=== PATIENT | female | born 1995 | race Caucasian/White ===

== ENCOUNTER 2016-10-18 06:08 | Inpatient (IN) | payer BC, OTHER ==
[2016-10-18] VITALS (28 sets, daily range): BP systolic 108–151; BP diastolic 55–92
[~2016-10-18] VITALS: Ht 160 cm; Wt 76.0 kg
[~2016-10-18 06:08] MED LIST: ANUS2.5C2 TOP; DOCU10ELUD PO; IBUP600T26 PO; MOM30SS PO; TYLE325T5 PO
[2016-10-18] MEDS ORDERED: PRENTAB55 PO (06:25)
[2016-10-18] MEDS ORDERED: LR 1,000 ML IV SCH (06:53)
[2016-10-18] MEDS ORDERED: OXYTOCIN DRIP 30 UNITS in APPROPRIATE DILUENT 1 EA IV SCH (07:00)
[2016-10-18 07:11] LABS: MEAN CORPUSCULAR HEMOGLOBIN 25.8 pg (27.0-33.0); MEAN CORPUSCULAR HGB CONC 32.2 g/dl (32.0-36.5); MEAN CORPUSCULAR VOLUME 80.2 fl (80.0-96.0); WHITE BLOOD COUNT 9.7 K/mm3 (4.0-10.0)
--- NOTE | 2016-10-18 07:48 | HPE ---
DATE OF ADMISSION: 10/18/2016 Dede is a 21-year-old, 2, para 1-0-0-1, at 39-4/7 weeks gestation, with an estimated date of confinement (EDC) of 10/21/2016, based on last normal menstrual period and supported by second trimester ultrasound. She presents to labor and delivery today for induction of labor due to recent diagnosis of gestational hypertension. She does report some occasional contractions. Denies leakage of fluid and vaginal bleeding. Her fetus has been active. care was initiated at [facility] as a late entry care at approximately 24 weeks due to her move to [place] and she did not obtain care while she was there. course has been complicated by a history of exercise-induced asthma with rare inhaler use, current diagnosis of shingles. The area is on her right abdomen and it is covered with an occlusive dressing at this time, and gestational hypertension. OBSTETRICAL HISTORY: June 2013, at 42 weeks gestation, she had spontaneous vaginal delivery, 7 pound 4 ounce male. OBSTETRICAL LABS: Blood type is B+, antibody screen negative, rubella immune, VDRL nonreactive. Urine culture no growth. Hepatitis B surface antigen negative. HIV negative. Hepatitis C antibody negative. Gonorrhea and Chlamydia negative. She was too late for the quad screen to be drawn. Gestational diabetic screening 104. GBS is negative. She did undergo a pre-eclamptic profile on 10/10/2016 with AST of 6, ALT of 11, LDH 155, uric acid 3.9. 24-hour urine of 198.4 mg. PAST MEDICAL HISTORY: Exercise-induced asthma, childhood varicella. SURGERIES: None. FAMILY HISTORY: Diabetes. SOCIAL HISTORY: The patient is and the is at bedside and supportive. She is a nonsmoker. Denies alcohol and drug use. No history of any sexually transmitted infections and denies history of abuse, physical, sexual and emotional. ALLERGIES: AMOXICILLIN, which causes hives. CURRENT MEDICATIONS: - vitamin OBJECTIVE: Her vital signs are stable. Temperature 98, pulse 101, respirations 18, blood pressure 123/72. heart rate 130 with moderate variability, positive accelerations, no decelerations. She is romero about every 3 minutes did palpate mild. Abdomen is gravid, cephalic presentation. Estimated weight approximately 7 pounds. Sterile vaginal exam: 2-3 cm dilated, 80% effaced and -3 station. Membranes are intact with scant bloody show. ASSESSMENT: Intrauterine at 39-4/7 weeks gestation. heart rate category 1. Gestational hypertension. PLAN: Admit patient to labor and delivery. Labs as ordered. Bed ad nik. Start IV Pitocin for labor induction. I did review risks of induction including increased risk for section, failed induction, intolerance to labor. All of the patient and her 's questions were answered and they do desire to proceed with induction at this time. I do anticipate labor and a spontaneous vaginal delivery.
[2016-10-18] MEDS: PRENATAL VITAMIN TAB PO SCH (09:00)
[2016-10-18] MEDS ORDERED: FENTANYL 2MCG/ML ROPIVACAINE 0.2% NACL 250 ML CADD As Ordered ONE (11:10)
[2016-10-18] MEDS ORDERED: FENTANYL/ROPIVACAINE/NACL CADD 250 ML EPIDURAL SCH (12:30)
[2016-10-18] MEDS ORDERED: REFRIGERATOR IV KEYS XX PRN (12:30)
[2016-10-18] MEDS ORDERED: EPIDURAL COMMENT XX SCH (12:30)
[2016-10-18] MEDS ORDERED: ePHEDrine SULFATE 25 MG/5 ML(5MG/ML) SYRINGE IV PRN (12:30)
[2016-10-18] MEDS ORDERED: ONDANSETRON 4MG/2ML VIAL (J2405) IV PRN (12:30)
[2016-10-18] MEDS ORDERED: LACTATED RINGER'S 1000 ML IV PRN (12:30)
[2016-10-18] MEDS ORDERED: NALOXONE INJ 0.4 MG/1 ML VIAL (J2310) IV PRN (12:30)
[2016-10-18] MEDS ORDERED: EPIDURAL/PCA KEYS XX PRN (12:30)
[2016-10-18] MEDS ORDERED: diphenhydrAMINE INJ 50MG/ML VIAL (J1200) IV PRN (12:30)
[2016-10-18] MEDS ORDERED: MOM 30ML SUSPENSION UDC PO PRN (13:45)
[2016-10-18] MEDS ORDERED: METHYLERGONOVINE MALEATE 0.2 MG TAB PO PRN (13:45)
[2016-10-18] MEDS ORDERED: DOCUSATE SODIUM 100 MG CAP PO PRN (13:45)
[2016-10-18] MEDS ORDERED: ANUSOL HC CREAM 30GM TOP PRN (13:45)
[2016-10-18] MEDS ORDERED: DIBUCAINE 1% OINTMENT 30GM TOP PRN (13:45)
[2016-10-18] MEDS ORDERED: RHOGAM 300 MCG (1500 IU) INJ (J2790) IM SCH (13:45)
[2016-10-18] MEDS ORDERED: ACETAMINOPHEN 500 MG TAB PO PRN (13:45)
[2016-10-18] MEDS ORDERED: MEASLES,MUMPS,RUBELLA VACCINE INJ (MMR-II) (90707) SC SCH (13:45)
[2016-10-18] MEDS: IBUPROFEN 800 MG TAB PO PRN (23:54)
[2016-10-19 06:11] VITALS: BP 119/64
[2016-10-19] MEDS: IBUPROFEN 800 MG TAB PO PRN ×3 (08:34→23:14)
[2016-10-19] MEDS: PRENATAL VITAMIN TAB PO SCH (08:34)
[2016-10-19 18:00] VITALS: BP 117/69
[2016-10-20 06:21] VITALS: BP 108/54
[2016-10-20] MEDS: PRENATAL VITAMIN TAB PO SCH (08:00)
[2016-10-20] MEDS ORDERED: MOTR200T40 PO (10:56)
[2016-10-20] MEDS ORDERED: TYLE500T78 PO (10:56)
[2016-10-20] MEDS ORDERED: MULTTAB20 PO (10:56)
[2016-10-20] MEDS: IBUPROFEN 800 MG TAB PO PRN (12:29)
--- NOTE | 2016-10-20 19:31 | DN ---
DATE: 10/18/2016 Comfortable with epidural. Artificial rupture of membranes 1255. Clear fluid at 8 cm. Fully dilated 1318. Viable female delivered left occiput anterior (JACINTA) compound with posterior left arm through loose body cord at 1326. Spontaneous respirations with stimulation. Transitioned on maternal abdomen. Cord doubly clamped and cut once pulsations ceased. scores eight and nine. Placenta Oleary and intact with three-vessel cord at 1331. Fundus firmed with massage and intravenous (IV) Pitocin bolus. Perineum intact. Estimated blood loss 200 mL. Sponge, sharp and instrument count correct. weight is pending. Mom and baby doing well.
== END 2016-10-20 13:35 | disposition home or self-care (01) | DRG 560 ==
LOC: M LDI 06:08 → M OBS 15:24
PROVIDERS: ADMIT Advanced Practice Midwife; ATTEND Advanced Practice Midwife
PROC: 10E0XZZ Delivery of Products of Conception, External Approach (ICD-10-PCS; principal; 2016-10-18)
PROC: 10907ZC Drainage of Amniotic Fluid, Therapeutic from Products of Conception, Via Natural or Artificial Opening (ICD-10-PCS; 2016-10-18)
PROC: 3E033VJ Introduction of Other Hormone into Peripheral Vein, Percutaneous Approach (ICD-10-PCS; 2016-10-18)
DX: O13.4 Gestational [pregnancy-induced] hypertension without significant proteinuria, complicating childbirth (principal); Z37.0 Single live birth; Z3A.38 38 weeks gestation of pregnancy; J45.909 Unspecified asthma, uncomplicated; B02.9 Zoster without complications; O98.52 Other viral diseases complicating childbirth; O99.52 Diseases of the respiratory system complicating childbirth; Z88.1 Allergy status to other antibiotic agents; O69.82X0 Labor and delivery complicated by other cord entanglement, without compression, not applicable or unspecified; O32.6XX0 Maternal care for compound presentation, not applicable or unspecified

== ENCOUNTER 2016-11-21 21:38 | Emergency (ER) | payer BC, OTHER ==
[~2016-11-21 21:38] MED LIST changes: +MOTR200T44 PO; +MULTTAB20 PO; +PRENTAB55 PO; +TYLE500T78 PO
[2016-11-21] MEDS ORDERED: EPINEPHrine INJ 1 MG/ML 1ML VIAL/AMP As Ordered ONE (21:53)
[2016-11-21] MEDS ORDERED: FAMOTIDINE INJ 20MG/2ML VIAL (S0028) As Ordered ONE ×2 (22:12→22:13)
[2016-11-21 22:21] LABS: BASO % 0.2 % (0.0-1.0); EOS # 0.3 K/mm3 (0.0-0.50); EOS % 5.6 % (0.0-3.0); LARGE UNSTAINED CELL # 0.3 K/mm3 (0.0-0.4); LARGE UNSTAINED CELL % 5.8 % (0.0-4.0); LYMPH # 2.1 K/mm3 (1.5-6.5); LYMPH % 35.4 % (24.0-44.0); MEAN CORPUSCULAR HEMOGLOBIN 25.3 pg (27.0-33.0); MEAN CORPUSCULAR HGB CONC 31.4 g/dl (32.0-36.5); MEAN CORPUSCULAR VOLUME 80.4 fl (80.0-96.0); MONO # 0.5 K/mm3 (0.0-0.8); MONO % 8.8 % (0.0-5.0); NEUTROPHILS # 2.6 K/mm3 (1.8-7.7); NEUTROPHILS % 44.2 % (36.0-66.0); PLATELET COUNT, AUTOMATED 179 k/mm3 (150-450); WHITE BLOOD COUNT 5.9 K/mm3 (4.0-10.0)
[2016-11-21 22:32] LABS: ANION GAP 10 MEQ/L (8-16); BLOOD UREA NITROGEN 6 MG/DL (7-18); CARBON DIOXIDE LEVEL 24 MEQ/L (21-32); CHLORIDE LEVEL 108 MEQ/L (98-107); CREATININE FOR GFR 1.09 MG/DL (0.55-1.02); GLOMERULAR FILTRATION RATE > 60.0 (>60); GLUCOSE, FASTING 112 MG/DL (70-105); POTASSIUM SERUM 3.6 MEQ/L (3.5-5.1); SODIUM LEVEL 142 MEQ/L (136-145)
--- NOTE | 2016-11-22 00:58 | REP ---
Clinical: Shortness of breath . Technique: PA and lateral. Comparison: 03/23/2012 . Findings: The mediastinum and cardiothymic silhouette are normal. The lung volumes are symmetric and normal. No acute consolidation, effusion, or pneumothorax. Skeletal structures are intact and normal for age. Impression: Normal chest x-ray. No focal consolidation. Signed by Shorty Saul MD 11/22/2016 12:50 A
--- NOTE | 2016-11-22 02:55 | EDDOCDS ---
Physician Documentation [facility] Name: Dede Montoya Age: 21 yrs Sex: Female : 1995 Arrival Date: 11/21/2016 Time: 21:38 Bed 4 Private MD: Disposition: 11/22/16 02:35 Discharged to Home/Self Care. Impression: Allergy to other foods. - Condition is Stable. - Discharge Instructions: Allergies, Epinephrine Injection, Food Allergy. - Prescriptions for Prednisone 20 mg Oral Tablet - take 2 tablet by ORAL route once daily for 5 days; 10 tablet. EpiPen 0.3 mg/0.3 mL (1:1,000) - inject 1 pen by INTRAMUSCULAR route one time As needed; 1 unit. - Medication Reconciliation, Local Pharmacy Hours form. - [facility] up: [facility]; When: Call to arrange an appointment; Reason: To establish care. - Problem is an acute exacerbation. - Symptoms have improved. Historical: - Allergies: Amoxicillin; Oregano; - Home Meds: 1. control - PMHx: none; - PSHx: none; - Social history: Smoking status: Patient states was never smoker of tobacco. No barriers to communication noted, The patient speaks fluent German. - Family history: Not pertinent. - : The pt / caregiver states he / she is not on anticoagulants. Home medication list is obtained from the patient. - Exposure Risk Screening:: None identified. 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 3 in. (160.02 cm) (R); Pain 0/10; 22:16 BP 145 / 71 (auto/); af2 22:17 Pulse 110 MON; Resp 18 S; Pulse Ox 99% on R/A; af2 22:31 BP 139 / 67 (auto/); af2 22:32 Pulse 108 MON; Resp 18 S; Pulse Ox 99% on R/A; af2 22:46 BP 139 / 70 (auto/); af2 22:47 Pulse 114 MON; Resp 18 S; Pulse Ox 100% on R/A; af2 23:01 BP 135 / 70 (auto/); af2 23:02 Pulse 116 MON; Resp 18 S; Pulse Ox 99% on R/A; af2 23:16 BP 135 / 69 (auto/); af2 23:17 Pulse 110 MON; Resp 18 S; Pulse Ox 99% on R/A; af2 23:31 BP 129 / 60 (auto/); af2 23:32 Pulse 106 MON; Resp 18 S; Pulse Ox 98% on R/A; af2 23:46 BP 125 / 60 (auto/); af2 23:47 Pulse 98 MON; Resp 18 S; Pulse Ox 97% on R/A; af2 11/22 00:01 BP 116 / 53 (auto/); af2 00:02 Pulse 108 MON; Resp 18 S; Pulse Ox 99% on R/A; af2 00:16 BP 115 / 58 (auto/); af2 00:17 Pulse 94 MON; Resp 18 S; Pulse Ox 98% on R/A; af2 00:31 BP 109 / 55 (auto/); af2 00:32 Pulse 86 MON; Resp 18 S; Pulse Ox 97% on R/A; af2 00:46 BP 100 / 50 (auto/); af2 00:47 Pulse 82 MON; Resp 18 S; Pulse Ox 98% on R/A; af2 01:01 BP 103 / 52 (auto/); af2 01:02 Pulse 82 MON; Resp 18 S; Pulse Ox 98% on R/A; af2 01:16 BP 104 / 52 (auto/); af2 01:17 Pulse 74 MON; Resp 18 S; Pulse Ox 98% on R/A; af2 01:31 BP 133 / 77 (auto/); af2 01:32 Pulse 96 MON; Resp 18 S; Pulse Ox 98% on R/A; af2 02:53 BP 118 / 71; Pulse 84; Resp 18 S; Temp 97.9(TE); Pulse Ox 98% on R/A; mlc 11/21 21:49 Body Mass Index 26.57 (68.04 kg, 160.02 cm) af2 MDM: 11/21 21:48 EPINEPHrine (1:1000) 0.3 ml IM once; Deep IM ordered. br1 21:49 IV Saline Lock ordered. br1 21:49 Undress patient ordered. br1 21:49 Engineering Inspection Assistant/Pulse Ox/q 30 min VS ordered. br1 21:50 CBC with Diff Ordered. EDMS 21:50 BMP Ordered. EDMS 21:51 Chest, 1 View Ordered. EDMS 21:51 ECG WITH READING ER PHYS+CARDIAG ordered. EDMS 21:58 Famotidine 40 mg IVP once ordered. br1 22:25 CBC with Diff Reviewed. br1 23:04 Financial registration complete. ks16 23:09 [facility] Payment Agreement was scanned into [employer] and attached to record. ks16 23:09 BMP Reviewed. br1 Administered Medications: 22:04 Drug: EPINEPHrine (1:1000) 0.3 ml [epinephrine HCl (PF) 1 mg/mL (1 mL) intravenous af2 solution (0.3 mL)] Route: IM; Site: right deltoid; 23:26 Follow up: Response: No Adverse Reaction af2 22:19 Drug: Famotidine 40 mg [famotidine 10 mg/mL intravenous solution (4 mL)] Route: IVP; af2 Site: left hand; 23:26 Follow up: Response: No Adverse Reaction af2 Signatures: Dispatcher [employer] EDMS George Garcia, DO mm11 Uday Ortiz MD MD br1 Ashley Aly RN RN mlc Cinthia Ruiz RN RN af2 Beth Brooke, Reg Reg ks16 The chart was reviewed and I authenticate all verbal orders and agree with the evaluation and treatment provided.Attachments: 23:09 [facility] Payment Agreement ks16 MTDD
--- NOTE | 2016-11-22 02:55 | EDDOCDS ---
Nurse's Notes [facility] Name: Dede Montoya Age: 21 yrs Sex: Female : 1995 Arrival Date: 11/21/2016 Time: 21:38 Bed 4 Private MD: Diagnosis: Allergy to other foods Presentation: 11/21 21:45 Presenting complaint: EMS states: allergic reaction with hives, swelling of lips, and af2 "it feels like my throat is closing." EMS admin of Benadryl 50 mg and Solu-medrol 125 mg with improvement. Onset: The symptoms/episode began/occurred suddenly. The patient has a history of a previous allergic reaction. The previous reaction involved swelling. Anaphylaxis evaluation, the patient reports or I have noted the following symptoms which indicate a significant risk of anaphylaxis: angioedema lump in the throat which may suggest laryngeal edema. Adult Sepsis Screening: The patient does not have new or worsening altered mentation. Patient's respiratory rate is less than 22. Systolic blood pressure is greater than 100. Patient has a qSOFA score of 0- Negative Sepsis Screen. Suicide/Homicide risk assessment- the patient denies having any suicidal and/or homicidal ideations and does not present with any other emotional, behavioral or mental health complaints. Status: The patient is a dependent. Transition of care: patient was not received from another setting of care. 21:45 Acuity: DERRICK Level 3 af2 21:45 Method Of Arrival: Ambulance af2 Triage Assessment: 21:48 General: Appears in no apparent distress, comfortable, Behavior is appropriate for age, af2 cooperative. Pain: Denies pain. Pt Declines HIV testing. The patient is triaged at the bedside. See Assessment in Nurses Notes section of ED record. Neurological: Level of Consciousness is awake, alert, obeys commands, Oriented to person, place, time. Respiratory: Reports shortness of breath. Derm: hives noted to abdomen and back. 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 control - PMHx: none; - PSHx: none; - Social history: Smoking status: Patient states was never smoker of tobacco. No barriers to communication noted, The patient speaks fluent Malawian. - Family history: Not pertinent. - : The pt / caregiver states he / she is not on anticoagulants. Home medication list is obtained from the patient. - Exposure Risk Screening:: None identified. Screenin:00 Screening information is obtained from the patient. Fall risk: No risks identified. af2 Assistance ADL's: requires no assistance with activities of daily living. Abuse/DV Screen: The patient / caregiver reports he/she is: not in a situation that causes fear, pain or injury. Nutritional screening: No deficits noted. Advance Directives: Currently, there is no health care proxy. home support is adequate. Assessment: 22:02 General: Appears in no apparent distress, comfortable, Behavior is appropriate for age, af2 cooperative. Neurological: Level of Consciousness is awake, alert, obeys commands, Oriented to person, place, time. Cardiovascular: Rhythm is sinus tachycardia No ectopy. Respiratory: Airway is patent Respiratory effort is even, unlabored, Breath sounds are clear bilaterally. Derm: Skin is normal. 23:00 General: Appears in no apparent distress, comfortable, Behavior is appropriate for age, af2 cooperative. Neurological: Level of Consciousness is awake, alert, obeys commands, Oriented to person, place, time. Cardiovascular: Rhythm is sinus rhythm No ectopy. Respiratory: Airway is patent Respiratory effort is even, unlabored. Derm: Skin is normal. 23:44 General: Appears in no apparent distress, comfortable, Behavior is appropriate for age, af2 cooperative. Neurological: Level of Consciousness is awake, alert, obeys commands, Oriented to person, place, time. Respiratory: Airway is patent Respiratory effort is even, unlabored. Derm: Skin is normal. 11/22 00:40 General: Appears in no apparent distress, comfortable, Behavior is appropriate for age, af2 cooperative. Neurological: Level of Consciousness is awake, alert, obeys commands. Respiratory: Airway is patent Respiratory effort is even, unlabored. Derm: Skin is normal. 01:41 General: Appears in no apparent distress, comfortable, Behavior is appropriate for age, af2 cooperative. Neurological: Level of Consciousness is awake, alert, obeys commands, Oriented to person, place, time. Cardiovascular: Rhythm is sinus rhythm No ectopy. Respiratory: Airway is patent Respiratory effort is even, unlabored. Derm: Skin is normal. 02:36 General: Appears in no apparent distress, comfortable, Behavior is appropriate for age, af2 cooperative. Neurological: Level of Consciousness is awake, alert, obeys commands, Oriented to person, place, time. Cardiovascular: Rhythm is sinus rhythm No ectopy. Respiratory: Airway is patent Respiratory effort is even, unlabored. Derm: Skin is normal. Vital Signs: 11/21 21:49 BP 155 / 71 LA Sitting (auto/); Pulse 101; Resp 18 S; Temp 97.9(TE); Pulse Ox 99% on af2 R/A; Weight 68.04 kg (R); Height 5 ft. 3 in. (160.02 cm) (R); Pain 0/10; 22:16 BP 145 / 71 (auto/); af2 22:17 Pulse 110 MON; Resp 18 S; Pulse Ox 99% on R/A; af2 22:31 BP 139 / 67 (auto/); af2 22:32 Pulse 108 MON; Resp 18 S; Pulse Ox 99% on R/A; af2 22:46 BP 139 / 70 (auto/); af2 22:47 Pulse 114 MON; Resp 18 S; Pulse Ox 100% on R/A; af2 23:01 BP 135 / 70 (auto/); af2 23:02 Pulse 116 MON; Resp 18 S; Pulse Ox 99% on R/A; af2 23:16 BP 135 / 69 (auto/); af2 23:17 Pulse 110 MON; Resp 18 S; Pulse Ox 99% on R/A; af2 23:31 BP 129 / 60 (auto/); af2 23:32 Pulse 106 MON; Resp 18 S; Pulse Ox 98% on R/A; af2 23:46 BP 125 / 60 (auto/); af2 23:47 Pulse 98 MON; Resp 18 S; Pulse Ox 97% on R/A; af2 11/22 00:01 BP 116 / 53 (auto/); af2 00:02 Pulse 108 MON; Resp 18 S; Pulse Ox 99% on R/A; af2 00:16 BP 115 / 58 (auto/); af2 00:17 Pulse 94 MON; Resp 18 S; Pulse Ox 98% on R/A; af2 00:31 BP 109 / 55 (auto/); af2 00:32 Pulse 86 MON; Resp 18 S; Pulse Ox 97% on R/A; af2 00:46 BP 100 / 50 (auto/); af2 00:47 Pulse 82 MON; Resp 18 S; Pulse Ox 98% on R/A; af2 01:01 BP 103 / 52 (auto/); af2 01:02 Pulse 82 MON; Resp 18 S; Pulse Ox 98% on R/A; af2 01:16 BP 104 / 52 (auto/); af2 01:17 Pulse 74 MON; Resp 18 S; Pulse Ox 98% on R/A; af2 01:31 BP 133 / 77 (auto/); af2 01:32 Pulse 96 MON; Resp 18 S; Pulse Ox 98% on R/A; af2 02:53 BP 118 / 71; Pulse 84; Resp 18 S; Temp 97.9(TE); Pulse Ox 98% on R/A; mlc 11/21 21:49 Body Mass Index 26.57 (68.04 kg, 160.02 cm) af2 Vitals: 11/21 21:49 Log In Time N/A - ambulance arrival. af2 ED Course: 21:40 Patient visited by Fredrick Pfeiffer, Independent Video Producer. ml3 21:40 Cinthia Ruiz,RN is Primary Nurse. ml3 21:40 Patient moved to Waiting ml3 21:40 Patient moved to 4 ml3 21:45 Uday Ortiz MD is Attending Physician. br1 21:47 Triage Initiated af2 21:48 Patient visited by Uday Ortiz MD. br1 21:50 Patient visited by Cinthia Ruiz,LAMONT. af2 21:51 Patient visited by Diana Deng PCA. cln 21:51 Pt greeted and oriented to ED. Patient advised of names of staff involved in care, cln location of call [place], wait times and NPO status. Patient has correct armband on for positive identification. Placed in gown. Bed in low position. Call light in reach. Side rails up X 1. 21:53 Patient visited by Diana Deng PCA. cln 21:53 EKG done. (by ED staff). Reviewed by Uday Ortiz MD. cln 22:02 BMP Sent. ld5 22:02 CBC with Diff Sent. ld5 22:03 Maintain field IV. Dressing intact. Good blood return noted. Site clean & dry. Gauge & af2 site: #[id number] to left ac. 22:04 Patient visited by Cinthia Ruiz RN. af2 23:06 Patient visited by Cinthia Ruiz RN. af2 23:09 [facility] Payment Agreement was scanned into [employer] and attached to record. ks16 23:43 Patient visited by Cinthia Ruiz RN. af2 23:45 Patient visited by Cinthia Ruiz RN. af2 11/22 00:00 Patient visited by Uday Ortiz MD. br1 00:08 Attending Physician role handed off by Uday Ortiz MD mm11 00:08 George Garcia DO is Attending Physician. mm11 00:32 Patient visited by Cinthia Ruiz RN. af2 01:18 Chest, 1 View Returned. EDMS 01:40 Patient visited by Cinthia Ruiz RN. af2 01:42 Patient visited by Cinthia Ruiz RN. af2 01:46 Patient visited by Cinthia Ruiz RN. af2 02:34 Patient visited by George Garcia DO. mm11 02:34 [facility] is Referral Physician. mm11 02:37 Patient visited by Cinthia Ruiz RN. af2 02:53 Discontinued IV lock intact, bleeding controlled, pressure dressing applied, No mlc redness/swelling at site. No procedures done that require assistance. 02:54 The patient / caregiver is instructed regarding the plan of care and ED course. mlc Administered Medications: 11/21 22:04 Drug: EPINEPHrine (1:1000) 0.3 ml [epinephrine HCl (PF) 1 mg/mL (1 mL) intravenous af2 solution (0.3 mL)] Route: IM; Site: right deltoid; 23:26 Follow up: Response: No Adverse Reaction af2 22:19 Drug: Famotidine 40 mg [famotidine 10 mg/mL intravenous solution (4 mL)] Route: IVP; af2 Site: left hand; 23:26 Follow up: Response: No Adverse Reaction af2 Order Results: Lab Order: CBC with Diff; SPEC'M 11/21/16 22:00 Test: WHITE BLOOD COUNT; Value: 5.9; Range: 4.0-10.0; Units: K/mm3; Status: F Test: RED BLOOD COUNT; Value: 4.78; Range: 4.00-5.40; Units: M/mm3; Status: F Test: HEMOGLOBIN; Value: 12.1; Range: 12.0-16.0; Units: g/dl; Status: F Test: HEMATOCRIT; Value: 38.4; Range: 36.0-47.0; Units: %; Status: F Test: MEAN CORPUSCULAR VOLUME; Value: 80.4; Range: 80.0-96.0; Units: fl; Status: F Test: MEAN CORPUSCULAR HEMOGLOBIN; Value: 25.3; Range: 27.0-33.0; Abnormal: Below low normal; Units: pg; Status: F Test: MEAN CORPUSCULAR HGB CONC; Value: 31.4; Range: 32.0-36.5; Abnormal: Below low normal; Units: g/dl; Status: F Test: RED CELL DISTRIBUTION WIDTH; Value: 14.0; Range: 11.5-14.5; Units: %; Status: F Test: PLATELET COUNT, AUTOMATED; Value: 179; Range: 150-450; Units: k/mm3; Status: F Test: NEUTROPHILS %; Value: 44.2; Range: 36.0-66.0; Units: %; Status: F Test: LYMPH %; Value: 35.4; Range: 24.0-44.0; Units: %; Status: F Test: MONO %; Value: 8.8; Range: 0.0-5.0; Abnormal: Above high normal; Units: %; Status: F Test: EOS %; Value: 5.6; Range: 0.0-3.0; Abnormal: Above high normal; Units: %; Status: F Test: BASO %; Value: 0.2; Range: 0.0-1.0; Units: %; Status: F Test: LARGE UNSTAINED CELL %; Value: 5.8; Range: 0.0-4.0; Abnormal: Above high normal; Units: %; Status: F Test: NEUTROPHILS #; Value: 2.6; Range: 1.8-7.7; Units: K/mm3; Status: F Test: LYMPH #; Value: 2.1; Range: 1.5-6.5; Units: K/mm3; Status: F Test: MONO #; Value: 0.5; Range: 0.0-0.8; Units: K/mm3; Status: F Test: EOS #; Value: 0.3; Range: 0.0-0.50; Units: K/mm3; Status: F Test: BASO #; Value: 0.0; Range: 0.0-0.2; Units: K/mm3; Status: F Test: LARGE UNSTAINED CELL #; Value: 0.3; Range: 0.0-0.4; Units: K/mm3; Status: F Lab Order: [facility]; SPEC'M 11/21/16 22:00 Test: GLUCOSE, FASTING; Value: 112; Range: 70-105; Abnormal: Above high normal; Units: MG/DL; Status: F Test: BLOOD UREA NITROGEN; Value: 6; Range: 7-18; Abnormal: Below low normal; Units: MG/DL; Status: F Test: CREATININE FOR GFR; Value: 1.09; Range: 0.55-1.02; Abnormal: Above high normal; Units: MG/DL; Status: F Test: GLOMERULAR FILTRATION RATE; Value: > 60.0; Range: >60; Status: F Test: SODIUM LEVEL; Value: 142; Range: 136-145; Units: MEQ/L; Status: F Test: POTASSIUM SERUM; Value: 3.6; Range: 3.5-5.1; Units: MEQ/L; Status: F Test: CHLORIDE LEVEL; Value: 108; Range: 98-107; Abnormal: Above high normal; Units: MEQ/L; Status: F Test: CARBON DIOXIDE LEVEL; Value: 24; Range: 21-32; Units: MEQ/L; Status: F Test: ANION GAP; Value: 10; Range: 8-16; Units: MEQ/L; Status: F Test: CALCIUM LEVEL; Value: 8.0; Range: 8.5-10.1; Abnormal: Below low normal; Units: MG/DL; Status: F Test Note: ; Units are mL/min/1.73 m2 Chronic Kidney Disease Staging per NKF: Stage I & II GFR >=60 Normal to Mildly Decreased Stage III GFR 30-59 Moderately Decreased Stage IV GFR 15-29 Severely Decreased Stage V GFR <15 Very Little GFR Left ESRD GFR <15 on 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 The lung volumes are; symmetric and normal. No acute consolidation, effusion, or pneumothorax.; Skeletal structures are intact and normal for age.; ; Impression:; Normal chest x-ray.; No focal consolidation.; ; ; Signed by; Shorty Saul MD 11/22/2016 12:50 A; Outcome: 11/22 02:35 Discharge ordered by Provider. mm11 02:53 Discharge Assessment: Patient awake, alert and oriented x 3. No cognitive and/or mlc functional deficits noted. Patient verbalized understanding of disposition instructions. patient administered narcotics - no. The following High Risk Discharge criteria are identified: None. Discharged to home ambulatory, with significant other. Condition: stable. Discharge instructions given to patient, Instructed on discharge instructions, follow up and referral plans. medication usage, Demonstrated understanding of instructions, medications, Pt was receptive of discharge instructions/ teaching. No special radiology studies were completed. Property :Personal belongings accompany Pt. 02:54 Patient left the ED. [place] Signatures: Dispatcher [employer] EDMS Fredrick Pfeiffer, Independent Video Producer Unit ml3 George Garcia DO DO mm11 Uday Ortiz MD MD br1 Marcyruz Mcnair,RN RN ld5 Ashley Aly RN RN mlc Cinthia Ruiz RN RN af2 Beth Brooke, Reg Reg ks16 Sowmya, Diana, ANIMAL LABORATORY TECHNICIAN ANIMAL LABORATORY TECHNICIAN cln MTDD
--- NOTE | 2016-11-22 21:18 | ECGEPIP ---
Stationary ECG Study 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
--- NOTE | 2016-11-24 03:55 | EDDOCDS ---
Nurse's Notes [facility] Name: Dede Montoya Age: 21 yrs Sex: Female : 1995 Arrival Date: 11/21/2016 Time: 21:38 Bed 4 Private MD: Diagnosis: Allergy to other foods Presentation: 11/21 21:45 Presenting complaint: EMS states: allergic reaction with hives, swelling of lips, and af2 "it feels like my throat is closing." EMS admin of Benadryl 50 mg and Solu-medrol 125 mg with improvement. Onset: The symptoms/episode began/occurred suddenly. The patient has a history of a previous allergic reaction. The previous reaction involved swelling. Anaphylaxis evaluation, the patient reports or I have noted the following symptoms which indicate a significant risk of anaphylaxis: angioedema lump in the throat which may suggest laryngeal edema. Adult Sepsis Screening: The patient does not have new or worsening altered mentation. Patient's respiratory rate is less than 22. Systolic blood pressure is greater than 100. Patient has a qSOFA score of 0- Negative Sepsis Screen. Suicide/Homicide risk assessment- the patient denies having any suicidal and/or homicidal ideations and does not present with any other emotional, behavioral or mental health complaints. Status: The patient is a dependent. Transition of care: patient was not received from another setting of care. 21:45 Acuity: DERRICK Level 3 af2 21:45 Method Of Arrival: Ambulance af2 Triage Assessment: 21:48 General: Appears in no apparent distress, comfortable, Behavior is appropriate for age, af2 cooperative. Pain: Denies pain. Pt Declines HIV testing. The patient is triaged at the bedside. See Assessment in Nurses Notes section of ED record. Neurological: Level of Consciousness is awake, alert, obeys commands, Oriented to person, place, time. Respiratory: Reports shortness of breath. Derm: hives noted to abdomen and back. 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 control - PMHx: none; - PSHx: none; - Social history: Smoking status: Patient states was never smoker of tobacco. No barriers to communication noted, The patient speaks fluent Brazilian. - Family history: Not pertinent. - : The pt / caregiver states he / she is not on anticoagulants. Home medication list is obtained from the patient. - Exposure Risk Screening:: None identified. Screenin:00 Screening information is obtained from the patient. Fall risk: No risks identified. af2 Assistance ADL's: requires no assistance with activities of daily living. Abuse/DV Screen: The patient / caregiver reports he/she is: not in a situation that causes fear, pain or injury. Nutritional screening: No deficits noted. Advance Directives: Currently, there is no health care proxy. home support is adequate. Assessment: 22:02 General: Appears in no apparent distress, comfortable, Behavior is appropriate for age, af2 cooperative. Neurological: Level of Consciousness is awake, alert, obeys commands, Oriented to person, place, time. Cardiovascular: Rhythm is sinus tachycardia No ectopy. Respiratory: Airway is patent Respiratory effort is even, unlabored, Breath sounds are clear bilaterally. Derm: Skin is normal. 23:00 General: Appears in no apparent distress, comfortable, Behavior is appropriate for age, af2 cooperative. Neurological: Level of Consciousness is awake, alert, obeys commands, Oriented to person, place, time. Cardiovascular: Rhythm is sinus rhythm No ectopy. Respiratory: Airway is patent Respiratory effort is even, unlabored. Derm: Skin is normal. 23:44 General: Appears in no apparent distress, comfortable, Behavior is appropriate for age, af2 cooperative. Neurological: Level of Consciousness is awake, alert, obeys commands, Oriented to person, place, time. Respiratory: Airway is patent Respiratory effort is even, unlabored. Derm: Skin is normal. 11/22 00:40 General: Appears in no apparent distress, comfortable, Behavior is appropriate for age, af2 cooperative. Neurological: Level of Consciousness is awake, alert, obeys commands. Respiratory: Airway is patent Respiratory effort is even, unlabored. Derm: Skin is normal. 01:41 General: Appears in no apparent distress, comfortable, Behavior is appropriate for age, af2 cooperative. Neurological: Level of Consciousness is awake, alert, obeys commands, Oriented to person, place, time. Cardiovascular: Rhythm is sinus rhythm No ectopy. Respiratory: Airway is patent Respiratory effort is even, unlabored. Derm: Skin is normal. 02:36 General: Appears in no apparent distress, comfortable, Behavior is appropriate for age, af2 cooperative. Neurological: Level of Consciousness is awake, alert, obeys commands, Oriented to person, place, time. Cardiovascular: Rhythm is sinus rhythm No ectopy. Respiratory: Airway is patent Respiratory effort is even, unlabored. Derm: Skin is normal. Vital Signs: 11/21 21:49 BP 155 / 71 LA Sitting (auto/); Pulse 101; Resp 18 S; Temp 97.9(TE); Pulse Ox 99% on af2 R/A; Weight 68.04 kg (R); Height 5 ft. 3 in. (160.02 cm) (R); Pain 0/10; 22:16 BP 145 / 71 (auto/); af2 22:17 Pulse 110 MON; Resp 18 S; Pulse Ox 99% on R/A; af2 22:31 BP 139 / 67 (auto/); af2 22:32 Pulse 108 MON; Resp 18 S; Pulse Ox 99% on R/A; af2 22:46 BP 139 / 70 (auto/); af2 22:47 Pulse 114 MON; Resp 18 S; Pulse Ox 100% on R/A; af2 23:01 BP 135 / 70 (auto/); af2 23:02 Pulse 116 MON; Resp 18 S; Pulse Ox 99% on R/A; af2 23:16 BP 135 / 69 (auto/); af2 23:17 Pulse 110 MON; Resp 18 S; Pulse Ox 99% on R/A; af2 23:31 BP 129 / 60 (auto/); af2 23:32 Pulse 106 MON; Resp 18 S; Pulse Ox 98% on R/A; af2 23:46 BP 125 / 60 (auto/); af2 23:47 Pulse 98 MON; Resp 18 S; Pulse Ox 97% on R/A; af2 11/22 00:01 BP 116 / 53 (auto/); af2 00:02 Pulse 108 MON; Resp 18 S; Pulse Ox 99% on R/A; af2 00:16 BP 115 / 58 (auto/); af2 00:17 Pulse 94 MON; Resp 18 S; Pulse Ox 98% on R/A; af2 00:31 BP 109 / 55 (auto/); af2 00:32 Pulse 86 MON; Resp 18 S; Pulse Ox 97% on R/A; af2 00:46 BP 100 / 50 (auto/); af2 00:47 Pulse 82 MON; Resp 18 S; Pulse Ox 98% on R/A; af2 01:01 BP 103 / 52 (auto/); af2 01:02 Pulse 82 MON; Resp 18 S; Pulse Ox 98% on R/A; af2 01:16 BP 104 / 52 (auto/); af2 01:17 Pulse 74 MON; Resp 18 S; Pulse Ox 98% on R/A; af2 01:31 BP 133 / 77 (auto/); af2 01:32 Pulse 96 MON; Resp 18 S; Pulse Ox 98% on R/A; af2 02:53 BP 118 / 71; Pulse 84; Resp 18 S; Temp 97.9(TE); Pulse Ox 98% on R/A; mlc 11/21 21:49 Body Mass Index 26.57 (68.04 kg, 160.02 cm) af2 Vitals: 11/21 21:49 Log In Time N/A - ambulance arrival. af2 ED Course: 21:40 Patient visited by Fredrick Pfeiffer, Brick And Tile Making Machine Operator. ml3 21:40 Cinthia Ruiz,RN is Primary Nurse. ml3 21:40 Patient moved to Waiting ml3 21:40 Patient moved to 4 ml3 21:45 Colt Ortiz MD is Attending Physician. br1 21:47 Triage Initiated af2 21:48 Patient visited by Colt Ortiz MD. br1 21:50 Patient visited by Cinthia Ruiz,LAMONT. af2 21:51 Patient visited by Diana Deng PCA. cln 21:51 Pt greeted and oriented to ED. Patient advised of names of staff involved in care, cln location of call [place], wait times and NPO status. Patient has correct armband on for positive identification. Placed in gown. Bed in low position. Call light in reach. Side rails up X 1. 21:53 Patient visited by Diana Deng PCA. cln 21:53 EKG done. (by ED staff). Reviewed by Colt Ortiz MD. cln 22:02 BMP Sent. ld5 22:02 CBC with Diff Sent. ld5 22:03 Maintain field IV. Dressing intact. Good blood return noted. Site clean & dry. Gauge & af2 site: #[id number] to left ac. 22:04 Patient visited by Cinthia Ruiz RN. af2 23:06 Patient visited by Cinthia Ruiz RN. af2 23:09 [facility] Payment Agreement was scanned into [employer] and attached to record. ks16 23:43 Patient visited by Cinthia Ruiz RN. af2 23:45 Patient visited by Cinthia Ruiz RN. af2 11/22 00:00 Patient visited by Colt Ortiz MD. br1 00:08 Attending Physician role handed off by Colt Ortiz MD mm11 00:08 George Garcia DO is Attending Physician. mm11 00:32 Patient visited by Cinthia Ruiz RN. af2 01:18 Chest, 1 View Returned. EDMS 01:40 Patient visited by Cinthia Ruiz RN. af2 01:42 Patient visited by Cinthia Ruiz RN. af2 01:46 Patient visited by Cinthia Ruiz RN. af2 02:34 Patient visited by George Garcia DO. mm11 02:34 [facility] is Referral Physician. mm11 02:37 Patient visited by Cinthia Ruiz RN. af2 02:53 Discontinued IV lock intact, bleeding controlled, pressure dressing applied, No mlc redness/swelling at site. No procedures done that require assistance. 02:54 The patient / caregiver is instructed regarding the plan of care and ED course. mlc 11:32 T-Sheet-- Draft Copy was scanned into [employer] and attached to record. gb 11:32 ECG/EKG was scanned into [employer] and attached to record. gb 11:33 PCR was scanned into [employer] and attached to record. gb 22:16 EKG-ADULT Returned. EDMS Administered Medications: 11/21 22:04 Drug: EPINEPHrine (1:1000) 0.3 ml [epinephrine HCl (PF) 1 mg/mL (1 mL) intravenous af2 solution (0.3 mL)] Route: IM; Site: right deltoid; 23:26 Follow up: Response: No Adverse Reaction af2 22:19 Drug: Famotidine 40 mg [famotidine 10 mg/mL intravenous solution (4 mL)] Route: IVP; af2 Site: left hand; 23:26 Follow up: Response: No Adverse Reaction af2 Order Results: Lab Order: CBC with Diff; SPEC'M 11/21/16 22:00 Test: WHITE BLOOD COUNT; Value: 5.9; Range: 4.0-10.0; Units: K/mm3; Status: F Test: RED BLOOD COUNT; Value: 4.78; Range: 4.00-5.40; Units: M/mm3; Status: F Test: HEMOGLOBIN; Value: 12.1; Range: 12.0-16.0; Units: g/dl; Status: F Test: HEMATOCRIT; Value: 38.4; Range: 36.0-47.0; Units: %; Status: F Test: MEAN CORPUSCULAR VOLUME; Value: 80.4; Range: 80.0-96.0; Units: fl; Status: F Test: MEAN CORPUSCULAR HEMOGLOBIN; Value: 25.3; Range: 27.0-33.0; Abnormal: Below low normal; Units: pg; Status: F Test: MEAN CORPUSCULAR HGB CONC; Value: 31.4; Range: 32.0-36.5; Abnormal: Below low normal; Units: g/dl; Status: F Test: RED CELL DISTRIBUTION WIDTH; Value: 14.0; Range: 11.5-14.5; Units: %; Status: F Test: PLATELET COUNT, AUTOMATED; Value: 179; Range: 150-450; Units: k/mm3; Status: F Test: NEUTROPHILS %; Value: 44.2; Range: 36.0-66.0; Units: %; Status: F Test: LYMPH %; Value: 35.4; Range: 24.0-44.0; Units: %; Status: F Test: MONO %; Value: 8.8; Range: 0.0-5.0; Abnormal: Above high normal; Units: %; Status: F Test: EOS %; Value: 5.6; Range: 0.0-3.0; Abnormal: Above high normal; Units: %; Status: F Test: BASO %; Value: 0.2; Range: 0.0-1.0; Units: %; Status: F Test: LARGE UNSTAINED CELL %; Value: 5.8; Range: 0.0-4.0; Abnormal: Above high normal; Units: %; Status: F Test: NEUTROPHILS #; Value: 2.6; Range: 1.8-7.7; Units: K/mm3; Status: F Test: LYMPH #; Value: 2.1; Range: 1.5-6.5; Units: K/mm3; Status: F Test: MONO #; Value: 0.5; Range: 0.0-0.8; Units: K/mm3; Status: F Test: EOS #; Value: 0.3; Range: 0.0-0.50; Units: K/mm3; Status: F Test: BASO #; Value: 0.0; Range: 0.0-0.2; Units: K/mm3; Status: F Test: LARGE UNSTAINED CELL #; Value: 0.3; Range: 0.0-0.4; Units: K/mm3; Status: F Lab Order: [facility]; SPEC'M 11/21/16 22:00 Test: GLUCOSE, FASTING; Value: 112; Range: 70-105; Abnormal: Above high normal; Units: MG/DL; Status: F Test: BLOOD UREA NITROGEN; Value: 6; Range: 7-18; Abnormal: Below low normal; Units: MG/DL; Status: F Test: CREATININE FOR GFR; Value: 1.09; Range: 0.55-1.02; Abnormal: Above high normal; Units: MG/DL; Status: F Test: GLOMERULAR FILTRATION RATE; Value: > 60.0; Range: >60; Status: F Test: SODIUM LEVEL; Value: 142; Range: 136-145; Units: MEQ/L; Status: F Test: POTASSIUM SERUM; Value: 3.6; Range: 3.5-5.1; Units: MEQ/L; Status: F Test: CHLORIDE LEVEL; Value: 108; Range: 98-107; Abnormal: Above high normal; Units: MEQ/L; Status: F Test: CARBON DIOXIDE LEVEL; Value: 24; Range: 21-32; Units: MEQ/L; Status: F Test: ANION GAP; Value: 10; Range: 8-16; Units: MEQ/L; Status: F Test: CALCIUM LEVEL; Value: 8.0; Range: 8.5-10.1; Abnormal: Below low normal; Units: MG/DL; Status: F Test Note: ; Units are mL/min/1.73 m2 Chronic Kidney Disease Staging per NKF: Stage I & II GFR >=60 Normal to Mildly Decreased Stage III GFR 30-59 Moderately Decreased Stage IV GFR 15-29 Severely Decreased Stage V GFR <15 Very Little GFR Left ESRD GFR <15 on SUPERVISOR CARTOGRAPHY Radiology Order: EKG-ADULT Test: EKG-ADULT REASON FOR EXAMINATION: dysrhythmia; Stationary ECG Study; [facility] - ED; ; Test Date: 2016-11-21; Pat Name: DEDE MONTOYA Department:; Room: -; Gender: F Transportation Technician: andree; : 1995 Requested By: COLT Pascual; Order Number: [id number] Reading MD: Shannan Bentley; Measurements; Intervals [place]; Rate: 96 P: 51; MN: 139 QRS: 38; QRSD: 89 T: 44; QT: 315; QTc: 399; Interpretive Statements; SINUS RHYTHM; NO PRIOR FOR COMPARISON; Electronically Signed On 11-22-2016 21:18:26 EST by Shannan Bentley; Radiology Order: Chest, 1 View Test: Chest, 1 View REASON FOR EXAMINATION: Shortness of Breath; Clinical: Shortness of breath .; Technique: PA and lateral.; ; Comparison: 03/23/2012 .; ; Findings:; The mediastinum and cardiothymic silhouette are normal. The lung volumes are; symmetric and normal. No acute consolidation, effusion, or pneumothorax.; Skeletal structures are intact and normal for age.; ; Impression:; Normal chest x-ray.; No focal consolidation.; ; ; Signed by; Shorty Saul MD 11/22/2016 12:50 A; Outcome: 11/22 02:35 Discharge ordered by Provider. mm11 02:53 Discharge Assessment: Patient awake, alert and oriented x 3. No cognitive and/or mlc functional deficits noted. Patient verbalized understanding of disposition instructions. patient administered narcotics - no. The following High Risk Discharge criteria are identified: None. Discharged to home ambulatory, with significant other. Condition: stable. Discharge instructions given to patient, Instructed on discharge instructions, follow up and referral plans. medication usage, Demonstrated understanding of instructions, medications, Pt was receptive of discharge instructions/ teaching. No special radiology studies were completed. Property :Personal belongings accompany Pt. 02:54 Patient left the ED. mlc Signatures: Dispatcher [employer] EDMS Shannon Mccurdy, Reg Reg gb Kentrell, EmyCindyJane, Brick And Tile Making Machine Operator Unit ml3 George Garcia, DO DO mm11 Colt Ortiz MD MD br1 Marycruz Mcnair,LAMONT RN ld5 Ashley Aly RN RN mlc Cinthia Ruiz RN RN af2 Beth Brooke, Reg Reg ks16 Sowmya, Diana, SHAMAR GRAFFITI CLEANER cln Chart Complete MTDD
--- NOTE | 2016-11-24 03:55 | EDDOCDS ---
Physician Documentation [facility] Name: Dede Montoya Age: 21 yrs Sex: Female : 1995 Arrival Date: 11/21/2016 Time: 21:38 Bed 4 Private MD: Disposition: 11/22/16 02:35 Discharged to Home/Self Care. Impression: Allergy to other foods. - Condition is Stable. - Discharge Instructions: Allergies, Epinephrine Injection, Food Allergy. - Prescriptions for Prednisone 20 mg Oral Tablet - take 2 tablet by ORAL route once daily for 5 days; 10 tablet. EpiPen 0.3 mg/0.3 mL (1:1,000) - inject 1 pen by INTRAMUSCULAR route one time As needed; 1 unit. - Medication Reconciliation, Local Pharmacy Hours form. - [facility]; When: Call to arrange an appointment; Reason: To establish care. - Problem is an acute exacerbation. - Symptoms have improved. Historical: - Allergies: Amoxicillin; Oregano; - Home Meds: 1. control - PMHx: none; - PSHx: none; - Social history: Smoking status: Patient states was never smoker of tobacco. No barriers to communication noted, The patient speaks fluent Slovak. - Family history: Not pertinent. - : The pt / caregiver states he / she is not on anticoagulants. Home medication list is obtained from the patient. - Exposure Risk Screening:: None identified. 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 3 in. (160.02 cm) (R); Pain 0/10; 22:16 BP 145 / 71 (auto/); af2 22:17 Pulse 110 MON; Resp 18 S; Pulse Ox 99% on R/A; af2 22:31 BP 139 / 67 (auto/); af2 22:32 Pulse 108 MON; Resp 18 S; Pulse Ox 99% on R/A; af2 22:46 BP 139 / 70 (auto/); af2 22:47 Pulse 114 MON; Resp 18 S; Pulse Ox 100% on R/A; af2 23:01 BP 135 / 70 (auto/); af2 23:02 Pulse 116 MON; Resp 18 S; Pulse Ox 99% on R/A; af2 23:16 BP 135 / 69 (auto/); af2 23:17 Pulse 110 MON; Resp 18 S; Pulse Ox 99% on R/A; af2 23:31 BP 129 / 60 (auto/); af2 23:32 Pulse 106 MON; Resp 18 S; Pulse Ox 98% on R/A; af2 23:46 BP 125 / 60 (auto/); af2 23:47 Pulse 98 MON; Resp 18 S; Pulse Ox 97% on R/A; af2 11/22 00:01 BP 116 / 53 (auto/); af2 00:02 Pulse 108 MON; Resp 18 S; Pulse Ox 99% on R/A; af2 00:16 BP 115 / 58 (auto/); af2 00:17 Pulse 94 MON; Resp 18 S; Pulse Ox 98% on R/A; af2 00:31 BP 109 / 55 (auto/); af2 00:32 Pulse 86 MON; Resp 18 S; Pulse Ox 97% on R/A; af2 00:46 BP 100 / 50 (auto/); af2 00:47 Pulse 82 MON; Resp 18 S; Pulse Ox 98% on R/A; af2 01:01 BP 103 / 52 (auto/); af2 01:02 Pulse 82 MON; Resp 18 S; Pulse Ox 98% on R/A; af2 01:16 BP 104 / 52 (auto/); af2 01:17 Pulse 74 MON; Resp 18 S; Pulse Ox 98% on R/A; af2 01:31 BP 133 / 77 (auto/); af2 01:32 Pulse 96 MON; Resp 18 S; Pulse Ox 98% on R/A; af2 02:53 BP 118 / 71; Pulse 84; Resp 18 S; Temp 97.9(TE); Pulse Ox 98% on R/A; mlc 11/21 21:49 Body Mass Index 26.57 (68.04 kg, 160.02 cm) af2 MDM: 11/21 21:48 EPINEPHrine (1:1000) 0.3 ml IM once; Deep IM ordered. br1 21:49 IV Saline Lock ordered. br1 21:49 Undress patient ordered. br1 21:49 Computer Publisher/Pulse Ox/q 30 min VS ordered. br1 21:50 CBC with Diff Ordered. EDMS 21:50 BMP Ordered. EDMS 21:51 Chest, 1 View Ordered. EDMS 21:51 ECG WITH READING ER PHYS+CARDIAG ordered. EDMS 21:58 Famotidine 40 mg IVP once ordered. br1 22:25 CBC with Diff Reviewed. br1 23:04 Financial registration complete. [email or web address] : [facility] Payment Agreement was scanned into [employer] and attached to record. ks16 : BMP Reviewed. br1 11/22 11:32 T-Sheet-- Draft Copy was scanned into [employer] and attached to record. gb 11:32 ECG/EKG was scanned into [employer] and attached to record. gb 11:33 PCR was scanned into [employer] and attached to record. gb Administered Medications: 11/21 22:04 Drug: EPINEPHrine (1:1000) 0.3 ml [epinephrine HCl (PF) 1 mg/mL (1 mL) intravenous af2 solution (0.3 mL)] Route: IM; Site: right deltoid; 23:26 Follow up: Response: No Adverse Reaction af2 22:19 Drug: Famotidine 40 mg [famotidine 10 mg/mL intravenous solution (4 mL)] Route: IVP; af2 Site: left hand; 23:26 Follow up: Response: No Adverse Reaction af2 Signatures: Dispatcher [employer] EDMI Shannon Mccurdy, Reg Reg gb George Garcia, DO mm11 Uday Ortiz MD MD br1 Ashley Aly RN RN mlc Cinthia Ruiz RN RN af2 Beth Brooke, Reg Reg ks16 The chart was reviewed and I authenticate all verbal orders and agree with the evaluation and treatment provided.Attachments: : [facility] Payment Agreement ks16 11/22 11:32 T-Sheet-- Draft Copy gb 11:32 ECG/EKG gb Chart Complete MTDD
--- NOTE | 2016-11-24 03:55 | EDDOCDS ---
Physician Documentation [facility] Name: Dede Montoya Age: 21 yrs Sex: Female : 1995 Arrival Date: 11/21/2016 Time: 21:38 Bed 4 Private MD: Disposition: 11/22/16 02:35 Discharged to Home/Self Care. Impression: Allergy to other foods. - Condition is Stable. - Discharge Instructions: Allergies, Epinephrine Injection, Food Allergy. - Prescriptions for Prednisone 20 mg Oral Tablet - take 2 tablet by ORAL route once daily for 5 days; 10 tablet. EpiPen 0.3 mg/0.3 mL (1:1,000) - inject 1 pen by INTRAMUSCULAR route one time As needed; 1 unit. - Medication Reconciliation, Local Pharmacy Hours form. - [facility]; When: Call to arrange an appointment; Reason: To establish care. - Problem is an acute exacerbation. - Symptoms have improved. Historical: - Allergies: Amoxicillin; Oregano; - Home Meds: 1. control - PMHx: none; - PSHx: none; - Social history: Smoking status: Patient states was never smoker of tobacco. No barriers to communication noted, The patient speaks fluent Turkish. - Family history: Not pertinent. - : The pt / caregiver states he / she is not on anticoagulants. Home medication list is obtained from the patient. - Exposure Risk Screening:: None identified. 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 3 in. (160.02 cm) (R); Pain 0/10; 22:16 BP 145 / 71 (auto/); af2 22:17 Pulse 110 MON; Resp 18 S; Pulse Ox 99% on R/A; af2 22:31 BP 139 / 67 (auto/); af2 22:32 Pulse 108 MON; Resp 18 S; Pulse Ox 99% on R/A; af2 22:46 BP 139 / 70 (auto/); af2 22:47 Pulse 114 MON; Resp 18 S; Pulse Ox 100% on R/A; af2 23:01 BP 135 / 70 (auto/); af2 23:02 Pulse 116 MON; Resp 18 S; Pulse Ox 99% on R/A; af2 23:16 BP 135 / 69 (auto/); af2 23:17 Pulse 110 MON; Resp 18 S; Pulse Ox 99% on R/A; af2 23:31 BP 129 / 60 (auto/); af2 23:32 Pulse 106 MON; Resp 18 S; Pulse Ox 98% on R/A; af2 23:46 BP 125 / 60 (auto/); af2 23:47 Pulse 98 MON; Resp 18 S; Pulse Ox 97% on R/A; af2 11/22 00:01 BP 116 / 53 (auto/); af2 00:02 Pulse 108 MON; Resp 18 S; Pulse Ox 99% on R/A; af2 00:16 BP 115 / 58 (auto/); af2 00:17 Pulse 94 MON; Resp 18 S; Pulse Ox 98% on R/A; af2 00:31 BP 109 / 55 (auto/); af2 00:32 Pulse 86 MON; Resp 18 S; Pulse Ox 97% on R/A; af2 00:46 BP 100 / 50 (auto/); af2 00:47 Pulse 82 MON; Resp 18 S; Pulse Ox 98% on R/A; af2 01:01 BP 103 / 52 (auto/); af2 01:02 Pulse 82 MON; Resp 18 S; Pulse Ox 98% on R/A; af2 01:16 BP 104 / 52 (auto/); af2 01:17 Pulse 74 MON; Resp 18 S; Pulse Ox 98% on R/A; af2 01:31 BP 133 / 77 (auto/); af2 01:32 Pulse 96 MON; Resp 18 S; Pulse Ox 98% on R/A; af2 02:53 BP 118 / 71; Pulse 84; Resp 18 S; Temp 97.9(TE); Pulse Ox 98% on R/A; mlc 11/21 21:49 Body Mass Index 26.57 (68.04 kg, 160.02 cm) af2 MDM: 11/21 21:48 EPINEPHrine (1:1000) 0.3 ml IM once; Deep IM ordered. br1 21:49 IV Saline Lock ordered. br1 21:49 Undress patient ordered. br1 21:49 Day Porter/Pulse Ox/q 30 min VS ordered. br1 21:50 CBC with Diff Ordered. EDMS 21:50 BMP Ordered. EDMS 21:51 Chest, 1 View Ordered. EDMS 21:51 ECG WITH READING ER PHYS+CARDIAG ordered. EDMS 21:58 Famotidine 40 mg IVP once ordered. br1 22:25 CBC with Diff Reviewed. br1 23:04 Financial registration complete. [email or web address] : [facility] Payment Agreement was scanned into [employer] and attached to record. [email or web address] : BMP Reviewed. br1 11/22 11:32 T-Sheet-- Draft Copy was scanned into [employer] and attached to record. gb 11:32 ECG/EKG was scanned into [employer] and attached to record. gb 11:33 PCR was scanned into [employer] and attached to record. gb Administered Medications: 11/21 22:04 Drug: EPINEPHrine (1:1000) 0.3 ml [epinephrine HCl (PF) 1 mg/mL (1 mL) intravenous af2 solution (0.3 mL)] Route: IM; Site: right deltoid; 23:26 Follow up: Response: No Adverse Reaction af2 22:19 Drug: Famotidine 40 mg [famotidine 10 mg/mL intravenous solution (4 mL)] Route: IVP; af2 Site: left hand; 23:26 Follow up: Response: No Adverse Reaction af2 Signatures: Dispatcher [employer] EDAL Shannon Mccurdy, Reg Reg gb George Garcia, DO mm11 Uday Ortiz MD MD br1 Ashley Aly RN RN mlc Cinthia Ruiz RN RN af2 Beth Brooke, Reg Reg [email or web address] The chart was reviewed and I authenticate all verbal orders and agree with the evaluation and treatment provided.Attachments: : [facility] Payment Agreement ks16 11/22 11:32 T-Sheet-- Draft Copy gb 11:32 ECG/EKG gb Chart Complete MTDD
== END 2016-11-22 02:54 | disposition home or self-care (01) ==
LOC: M ED 21:38
DX: Z91.018 Allergy to other foods (principal); R21 Rash and other nonspecific skin eruption; R22.0 Localized swelling, mass and lump, head; R06.02 Shortness of breath; Z88.0 Allergy status to penicillin

== ENCOUNTER 2016-12-21 11:13 | Emergency (ER) | payer BC, OTHER ==
[~2016-12-21] VITALS: Ht 160 cm; Wt 68.0 kg
[2016-12-21] MEDS ORDERED: NS 1,000 ML IV ONE (12:00)
[2016-12-21] MEDS ORDERED: ONDANSETRON 4MG/2ML VIAL (J2405) IV ONE (12:00)
[2016-12-21] MEDS ORDERED: KETOROLAC 30 MG/ML VIAL (J1885) IV ONE (12:00)
[2016-12-21 12:43] LABS: MEAN CORPUSCULAR HEMOGLOBIN 26.4 pg (27.0-33.0); MEAN CORPUSCULAR HGB CONC 32.3 g/dl (32.0-36.5); MEAN CORPUSCULAR VOLUME 81.9 fl (80.0-96.0); RED CELL DISTRIBUTION WIDTH 15.2 % (11.5-14.5); WHITE BLOOD COUNT 7.4 K/mm3 (4.0-10.0)
[2016-12-21 13:06] LABS: ALBUMIN/GLOBULIN RATIO 1.18 (1.00-1.93); ALKALINE PHOSPHATASE 73 U/L (45-117); ALT/SGPT 25 U/L (12-78); ANION GAP 9 MEQ/L (8-16); AST/SGOT 15 U/L (15-37); BILIRUBIN,TOTAL 0.3 MG/DL (0.2-1.0); BLOOD UREA NITROGEN 13 MG/DL (7-18); CALCIUM LEVEL 8.5 MG/DL (8.5-10.1); CARBON DIOXIDE LEVEL 29 MEQ/L (21-32); CHLORIDE LEVEL 104 MEQ/L (98-107); CREATININE FOR GFR 0.72 MG/DL (0.55-1.02); GLOMERULAR FILTRATION RATE > 60.0 (>60); GLUCOSE, FASTING 88 MG/DL (70-105); SODIUM LEVEL 142 MEQ/L (136-145); TOTAL PROTEIN 7.4 GM/DL (6.4-8.2)
[2016-12-21] MEDS ORDERED: PYRI200T5 PO (13:31)
[2016-12-21] MEDS ORDERED: FLOM5CAP PO (13:31)
[2016-12-21] MEDS ORDERED: CIPR500T89 PO (13:31)
[2016-12-21] MEDS ORDERED: ZOFR4TAB3 PO (13:31)
[2016-12-21] MEDS ORDERED: PERC5TAB6 PO (13:31)
[2016-12-21] MEDS ORDERED: TAMSULOSIN 0.4 MG CAP PO ONE (13:45)
[2016-12-21 13:48] VITALS: BP 128/67
--- NOTE | 2016-12-21 14:00 | REP ---
REASON: Flank pain on the right. COMPARISON: Contrast enhanced exam of 10/19/2013. The lung bases are clear and unchanged. Limited evaluation of the solid intra-abdominal organs and gallbladder show no gross abnormalities. Limited evaluation of the pancreas and the adrenal glands show no gross abnormalities. Limited evaluation of the left kidney shows no evidence of left-sided nephroureterolithiasis, hydronephrosis or hydroureter. There is right-sided hydronephrosis and hydroureter. In the distal right ureter, there is a 7 mm size calcification resulting in the aforementioned findings. There are two 2 to 3 mm sized right nephroliths. Limited evaluation of the abdominal aorta and para-aortic regions show no gross abnormalities. Limited evaluation of the intrapelvic and intra-abdominal bowel loops and their mesenteries show no gross abnormalities. No free fluid or free air is seen in the abdomen or pelvis. There are no urinary bladder calcifications. Bone window technique through the examination shows the osseus structures to be stable and intact. IMPRESSION: Obstructing right distal ureterolith and resultant findings as described above. Signed by Blue Mckeon DO 12/21/2016 04:47 P
== END 2016-12-21 13:45 | disposition home or self-care (01) ==
LOC: M ED 12:41
DX: N39.0 Urinary tract infection, site not specified (principal); N20.1 Calculus of ureter; Z87.442 Personal history of urinary calculi; Z79.899 Other long term (current) drug therapy; Z88.0 Allergy status to penicillin
CPT/HCPCS: 74176; 80053; 81001; 81025; 83690; 85027; 87086; 96361; 96374; 96375; 99283; J1885; J2405

== ENCOUNTER → 2016-12-27 | Outpatient (CLI) | payer BC, OTHER ==
[~2016-12-27] MED LIST changes: +CIPR500T89 PO; +FLOM5CAP PO; +PERC5TAB6 PO; +PYRI200T5 PO; +ZOFR4TAB3 PO
[2016-12-27 15:30] LABS: CONTROL LINE HCG INT CTR LINE PRESENT
[2016-12-27 15:56] LABS: INR 0.99
--- NOTE | 2016-12-27 16:15 | REP ---
KUB: Two views. History: Ureteral stone with hydronephrosis. Comparison study September 05, 2014. Comparison CT study is from December 21, 2016. Findings: The bowel gas pattern is normal. The recently noted right ureteral calculus is again seen in the right pelvis at the level of the iliac spines. No other urinary tract calculus is appreciated. Impression: Findings consistent with right distal ureteral calculus as seen on recent CT. This measures 5 mm in greatest diameter radiographically. Signed by Benja Tripp MD 12/27/2016 05:01 P
== END ==
LOC: M LAB 14:34
PROVIDERS: ATTEND Nurse Practitioner Women's Health
DX: Z01.818 Encounter for other preprocedural examination (principal); N13.2 Hydronephrosis with renal and ureteral calculous obstruction

== ENCOUNTER → 2017-01-07 | Outpatient (REF) | payer BC, OTHER | LOC: M SMT 17:03 | PROVIDERS: ATTEND Nurse Practitioner Women's Health | DX: R30.0 Dysuria (principal) ==

== ENCOUNTER → 2017-01-13 | Day surgery (SDC) | payer BC, OTHER ==
[~2017-01-13] VITALS: Ht 160 cm; Wt 66.7 kg
[~2017-01-13] MED LIST changes: +CIPROFLOXACIN 400 MG in APPROPRIATE DILUENT 1 EA IV ONE; +LR 1,000 ML IV SCH
[2017-01-13 06:30] VITALS: BP 115/67
[2017-01-13 06:46] LABS: CONTROL LINE UCG INT CTR LINE PRESENT
== END | disposition home or self-care (01) ==
LOC: M SDC 06:08
PROVIDERS: ATTEND Urology
DX: N20.1 Calculus of ureter (principal); Z53.8 Procedure and treatment not carried out for other reasons
CPT/HCPCS: 82360; 84703; 88300; J0744

== ENCOUNTER → 2017-03-14 | Outpatient (CLI) | payer BC, OTHER ==
[~2017-03-14] MED LIST changes: -CIPROFLOXACIN 400 MG in APPROPRIATE DILUENT 1 EA IV ONE; -LR 1,000 ML IV SCH
[2017-03-14 09:22] LABS: BASO % 0.2 % (0.0-1.0); EOS # 0.3 K/mm3 (0.0-0.50); EOS % 4.9 % (0.0-3.0); LARGE UNSTAINED CELL # 0.1 K/mm3 (0.0-0.4); LARGE UNSTAINED CELL % 1.5 % (0.0-4.0); LYMPH % 30.5 % (24.0-44.0); MEAN CORPUSCULAR HGB CONC 33.6 g/dl (32.0-36.5); MEAN CORPUSCULAR VOLUME 83.3 fl (80.0-96.0); MONO # 0.3 K/mm3 (0.0-0.8); MONO % 5.2 % (0.0-5.0); NEUTROPHILS # 3.8 K/mm3 (1.8-7.7); NEUTROPHILS % 57.7 % (36.0-66.0); PLATELET COUNT, AUTOMATED 198 k/mm3 (150-450); WHITE BLOOD COUNT 6.5 K/mm3 (4.0-10.0)
[2017-03-14 10:22] LABS: HBsAg Prenatal NEGATIVE (NEGATIVE)
== END ==
LOC: M LAB 08:49
PROVIDERS: ATTEND Advanced Practice Midwife
DX: Z34.81 Encounter for supervision of other normal pregnancy, first trimester (principal)

== ENCOUNTER → 2017-05-20 | Outpatient (CLI) | payer BC ==
[~2017-05-20] MED LIST changes: +BENA25TA10 PO; +CIPR-249 PO; -CIPR500T89 PO; +PERC5TAB12 PO; -PERC5TAB6 PO; +PRENTAB8 PO; +PYRI1TAB5 PO; -PYRI200T5 PO
--- NOTE | 2017-05-20 09:59 | REP ---
Obstetric ultrasound for anatomy: There is a single intrauterine gestation in a breech presentation. There is movement and cardiac activity. The heart rate is 144 beats per minute. The placenta is posterior and low-lying, however there is no placenta previa or abruptio. Placenta is grade zero. Subjectively the amniotic fluid volume is normal. The cervix is 4.5 cm in length. The maternal adnexa and cul-de-sac are unremarkable. Gestational age by the ultrasound today is 18 weeks 1 day with an MARY of 10/20/2017. By LMP the gestational age is 00-jqrxs-5-day. weight is 230 grams (0 pounds, 8 ounces). This is the 52nd percentile for 18 weeks 1 day. The following anatomic structures are identified and are unremarkable: Intracranial lateral ventricles, choroid plexus, cerebellum, cisterna magna, face, upper lip, cavum septum pellucidum, lungs, cardiac right and left ventricular outflow tracts, diaphragm, stomach, cord insertion, three-vessel cord, kidneys, bladder, and upper lower extremities. Suboptimally demonstrated because of position are the four-chamber view of the heart and the spine. A followup study dedicated to these structures might be considered. Otherwise, there are no anomalies. Signed by Fredy Alexander MD 05/20/2017 09:50 A
== END ==
LOC: M RAD 08:02
PROVIDERS: ATTEND Obstetrics & Gynecology
DX: Z36 Encounter for antenatal screening of mother (principal); Z3A.18 18 weeks gestation of pregnancy

== ENCOUNTER 2017-05-23 20:37 | Emergency (ER) | payer BC ==
[~2017-05-23] VITALS: Ht 160 cm; Wt 63.6 kg
[2017-05-23 20:37] VITALS: BP 122/63
[~2017-05-23 20:37] MED LIST changes: -BENA25TA10 PO; -PRENTAB8 PO
[2017-05-23] MEDS ORDERED: PRENTAB8 PO (20:43)
[2017-05-23] MEDS ORDERED: BENA25TA10 PO (20:44)
[2017-05-23] MEDS ORDERED: FAMOTIDINE 20 MG TAB PO ONE (21:15)
== END 2017-05-23 22:36 | disposition home or self-care (01) ==
LOC: M ED 20:37
DX: O9A.212 Injury, poisoning and certain other consequences of external causes complicating pregnancy, second trimester (principal); T78.3XXA Angioneurotic edema, initial encounter; T78.40XA Allergy, unspecified, initial encounter; Z3A.18 18 weeks gestation of pregnancy

== ENCOUNTER → 2017-06-23 | Outpatient (CLI) | payer BC ==
[~2017-06-23] MED LIST changes: +BENA25TA10 PO; +PRENTAB8 PO
--- NOTE | 2017-06-23 12:02 | REP ---
Clinical: Anatomical re-evaluation. Comparison: 05/20/2017 . Findings: Examination demonstrates a single live intrauterine in cephalic presentation. motion is identified by technologist. Grade zero posterior placenta is 2 cm from the closed internal os. Amniotic fluid volume is normal. Cervix measures 4.7 cm in length and appears closed. No evidence for nuchal cord. Gestational age by LMP 23 weeks 0 days with MARY 10/20/2017. Gestational age by current measurements 23 weeks 2 days with MARY 10/20/2017 . FHR equals 136 beats per minute. Estimated weight 586 grams ( 56th percentile). Anatomical assessment demonstrates normal structures including cranium, choroid plexus, cavum, cerebellum/posterior fossa, facial features, lungs, four-chamber heart/ventricular outflow tracts, diaphragm, stomach, cord insertion/three-vessel cord, kidneys/bladder, spine, and extremities. Impression: 1. Single live intrauterine demonstrating appropriate interval growth. 2. Posterior placenta measuring 2 cm from the closed internal os. 3. Anatomical assessment is complete and normal. Signed by Shorty Saul MD 06/23/2017 11:54 A
== END ==
LOC: M RAD 10:31
PROVIDERS: ATTEND Specialist
DX: Z36 Encounter for antenatal screening of mother (principal); Z3A.23 23 weeks gestation of pregnancy

== ENCOUNTER → 2017-07-15 | Outpatient (REF) | payer BC, MEDICAID | LOC: M LAB REF 17:02 | PROVIDERS: ATTEND Advanced Practice Midwife | DX: R30.0 Dysuria (principal); Z34.82 Encounter for supervision of other normal pregnancy, second trimester ==

== ENCOUNTER → 2017-07-22 | Outpatient (CLI) | payer BC, MEDICAID ==
[2017-07-22 14:39] LABS: MEAN CORPUSCULAR HEMOGLOBIN 28.5 pg (27.0-33.0); MEAN CORPUSCULAR VOLUME 86.4 fl (80.0-96.0); RED CELL DISTRIBUTION WIDTH 12.5 % (11.5-14.5); WHITE BLOOD COUNT 10.4 10^3/uL (4.0-10.0)
== END ==
LOC: M LAB 13:13
PROVIDERS: ATTEND Obstetrics & Gynecology
DX: Z34.82 Encounter for supervision of other normal pregnancy, second trimester (principal)

== ENCOUNTER → 2017-09-25 | Outpatient (REF) | payer BC, MEDICAID | LOC: M LAB REF 13:12 | PROVIDERS: ATTEND Advanced Practice Midwife | DX: Z34.83 Encounter for supervision of other normal pregnancy, third trimester (principal) ==

== ENCOUNTER 2017-10-14 12:23 | Inpatient (IN) | payer BC, MEDICAID ==
[2017-10-14] MEDS ORDERED: LR 1,000 ML IV (13:30)
[2017-10-14] MEDS ORDERED: LACTATED RINGER'S 1000 ML IV ×2 (13:30→15:45)
[2017-10-14] MEDS ORDERED: FENTANYL 2MCG/ML ROPIVACAINE 0.2% IN 0.9% NACL 200ML IVBAG As Ordered (13:57)
[2017-10-14 14:07] LABS: HEMATOCRIT 35.9 % (36.0-47.0); HEMOGLOBIN 11.5 g/dl (12.0-16.0); MEAN CORPUSCULAR HEMOGLOBIN 25.4 pg (27.0-33.0); MEAN CORPUSCULAR VOLUME 79.4 fl (80.0-96.0); PLATELET COUNT, AUTOMATED 230 10^3/uL (150-450); RED BLOOD COUNT 4.52 10^6/uL (4.00-5.40); RED CELL DISTRIBUTION WIDTH 13.5 % (11.5-14.5); WHITE BLOOD COUNT 13.6 10^3/uL (4.0-10.0)
[2017-10-14 14:18] LABS: AMPHETAMINES URINE REFLEX NEGATIVE (NEGATIVE); BARBITURATES URINE REFLEX NEGATIVE (NEGATIVE); BENZODIAZEPINES URINE REFLEX NEGATIVE (NEGATIVE); CANNABINOIDS URINE REFLEX NEGATIVE (NEGATIVE); COCAINE METABOLITE URINE REFLE NEGATIVE (NEGATIVE); METHADONE URINE REFLEX NEGATIVE (NEGATIVE); OPIATES URINE REFLEX NEGATIVE (NEGATIVE); PHENCYCLIDINE URINE REFLEX NEGATIVE (NEGATIVE)
[2017-10-14] MEDS: LR 1,000 ML IV (15:21)
[2017-10-14] MEDS ORDERED: ONDANSETRON 4MG/2ML VIAL (J2405) IV (15:45)
[2017-10-14] MEDS ORDERED: NALOXONE INJ 0.4 MG/1 ML VIAL (J2310) IV (15:45)
[2017-10-14] MEDS ORDERED: diphenhydrAMINE INJ 50MG/ML VIAL (J1200) IV (15:45)
[2017-10-14] MEDS ORDERED: EPIDURAL/PCA KEYS XX (15:45)
[2017-10-14] MEDS ORDERED: ePHEDrine SULFATE 25 MG/5 ML(5MG/ML) SYRINGE IV (15:45)
[2017-10-14] MEDS ORDERED: FENTANYL/ROPIVACAINE/NACL BAG 200 ML EPIDURAL (15:45)
[2017-10-14] MEDS ORDERED: EPIDURAL COMMENT XX (15:45)
[2017-10-14] MEDS ORDERED: REFRIGERATOR IV KEYS XX (15:45)
[2017-10-14] MEDS ORDERED: OXYTOCIN 30 UNITS IN 0.9% NaCl 500ML IV BAG (J2590) As Ordered (18:32)
[2017-10-14] MEDS: OXYTOCIN DRIP 30 UNITS in APPROPRIATE DILUENT 1 EA IV (18:52)
[2017-10-14] MEDS ORDERED: METHYLERGONOVINE MALEATE 0.2 MG TAB PO (19:00)
[2017-10-14] MEDS ORDERED: ANUSOL HC CREAM 30GM TOP (19:00)
[2017-10-14] MEDS ORDERED: MOM 30ML SUSPENSION UDC PO (19:00)
[2017-10-14] MEDS ORDERED: DOCUSATE SODIUM 100 MG CAP PO (19:00)
[2017-10-14] MEDS: IBUPROFEN 800 MG TAB PO (20:58)
[2017-10-14] MEDS: ACETAMINOPHEN 500 MG TAB PO (20:58)
[2017-10-14] MEDS: DIBUCAINE 1% OINTMENT 30GM TOP (20:59)
[2017-10-15] MEDS: IBUPROFEN 800 MG TAB PO ×2 (05:19→14:11)
[2017-10-15] MEDS: ACETAMINOPHEN 500 MG TAB PO ×2 (05:20→19:45)
[2017-10-15] MEDS: PRENATAL VITAMINS CHEWABLE TABLET PO (07:43)
[2017-10-15] MEDS: RHOGAM 300 MCG (1500 IU) INJ (J2790) IM (19:40)
[2017-10-15] MEDS: MEASLES,MUMPS,RUBELLA VACCINE INJ (MMR-II) (90707) SC (19:40)
[2017-10-16] MEDS: PRENATAL VITAMINS CHEWABLE TABLET PO (08:11)
== END 2017-10-16 10:55 | disposition home or self-care (01) | DRG 560 ==
LOC: M LDI 12:23 → M OBS 20:30
PROVIDERS: Obstetrics & Gynecology
PROC: 10E0XZZ Delivery of Products of Conception, External Approach (ICD-10-PCS; principal; 2017-10-14)
DX: O80 Encounter for full-term uncomplicated delivery (principal); Z3A.39 39 weeks gestation of pregnancy; Z37.0 Single live birth

== ENCOUNTER → 2018-01-05 | Outpatient (CLI) | payer BC, MEDICAID ==
[2018-01-05 18:12] LABS: THYROGLOBULIN ANTIBODY < 15.0 U/ML (<60.0); TOTAL T3 95.4 NG/DL (60.0-181.0)
[2018-01-05 18:17] LABS: ALBUMIN 4.3 GM/DL (3.2-5.2); ALBUMIN/GLOBULIN RATIO 1.48 (1.00-1.93); ALKALINE PHOSPHATASE 57 U/L (45-117); ALT/SGPT 36 U/L (12-78); ANION GAP 6 MEQ/L (8-16); AST/SGOT 21 U/L (7-37); BILIRUBIN,TOTAL 0.4 MG/DL (0.2-1.0); BLOOD UREA NITROGEN 14 MG/DL (7-18); CALCIUM LEVEL 8.7 MG/DL (8.5-10.1); CARBON DIOXIDE LEVEL 29 MEQ/L (21-32); CHLORIDE LEVEL 108 MEQ/L (98-107); CREATININE FOR GFR 0.85 MG/DL (0.55-1.30); GLOMERULAR FILTRATION RATE > 60.0 (>60); GLUCOSE, FASTING 68 MG/DL (70-100); POTASSIUM SERUM 3.9 MEQ/L (3.5-5.1); RHEUMATOID FACTOR QUANT < 10.0 IU/ML (<15.0); SODIUM LEVEL 143 MEQ/L (136-145); THYROID STIMULATING HORMONE 0.407 uIU/ML (0.358-3.740); THYROXINE (T4) 8.6 UG/DL (4.5-12.0); TOTAL PROTEIN 7.2 GM/DL (6.4-8.2)
[2018-01-05 18:25] LABS: HEMATOCRIT 38.7 % (36.0-47.0); HEMOGLOBIN 12.3 g/dl (12.0-16.0); MEAN CORPUSCULAR HEMOGLOBIN 26.6 pg (27.0-33.0); MEAN CORPUSCULAR HGB CONC 31.8 g/dl (32.0-36.5); MEAN CORPUSCULAR VOLUME 83.8 fl (80.0-96.0); PLATELET COUNT, AUTOMATED 255 10^3/uL (150-450); RED BLOOD COUNT 4.62 10^6/uL (4.00-5.40); RED CELL DISTRIBUTION WIDTH 15.7 % (11.5-14.5); WHITE BLOOD COUNT 7.4 10^3/uL (4.0-10.0)
[2018-01-05 18:47] LABS: ERYTHROCYTE SEDIMENTATION RATE 8 mm/hr (0-20)
== END ==
LOC: M SMT 11:56
DX: T78.2XXA Anaphylactic shock, unspecified, initial encounter (principal); L50.1 Idiopathic urticaria; Z90.13 Acquired absence of bilateral breasts and nipples; Z91.018 Allergy to other foods
CPT/HCPCS: 82785

== ENCOUNTER 2018-03-15 08:45 | Emergency (ER) | payer BC, MEDICAID, OTHER ==
[2018-03-15 09:19] LABS: AMORPHOUS SEDIMENT RFX SMALL (NEGATIVE); KETONE, URINE AUTO RFX NEGATIVE (NEGATIVE); MUCUS, URINE RFX SMALL (NEGATIVE); NITRITE, URINE AUTO RFX NEGATIVE (NEGATIVE); RBC, URINE AUTO RFX 1 /HPF (0-3); SPECIFIC GRAVITY UR AUTO RFX 1.025 (1.002-1.035); SQUAM EPITHELIAL CELL UR AURFX 5 /HPF (0-6); WBC, URINE AUTO RFX 2 /HPF (0-3)
[2018-03-15 09:33] LABS: LEUKOCYTE ESTERASE UR AUTO RFX TRACE (NEGATIVE)
== END 2018-03-15 09:45 | disposition home or self-care (01) ==
LOC: M ED 08:45
DX: N30.00 Acute cystitis without hematuria (principal); M54.5 Low back pain; Z87.442 Personal history of urinary calculi; Z79.3 Long term (current) use of hormonal contraceptives; Z79.899 Other long term (current) drug therapy; Z88.0 Allergy status to penicillin
CPT/HCPCS: 81001

== ENCOUNTER → 2019-05-08 | Outpatient (CLI) | payer OTHER ==
[~2019-05-08] MED LIST changes: +ADVI200C5 PO; +BACT800T5 PO; -DOCU10ELUD PO; +DOCU5LIQ PO; +EXCETAB80 PO; +FLOM0.4C39 PO; -FLOM5CAP PO; +MAPA500T2 PO; +MICR1TAB16; +NAPR-837 PO; +NEXP1IMP SC; +ZOFR4TAB14 PO; -ZOFR4TAB3 PO
[2019-05-08 10:20] LABS: BASO % 0.3 % (0.0-1.0); EOS # 0.3 10^3/uL (0.0-0.50); EOS % 3.4 % (0.0-3.0); HEMATOCRIT 35.1 % (36.0-47.0); HEMOGLOBIN 11.1 g/dl (12.0-15.5); LYMPH # 1.8 10^3/uL (1.5-6.5); LYMPH % 23.7 % (24.0-44.0); MEAN CORPUSCULAR HEMOGLOBIN 24.9 pg (27.0-33.0); MEAN CORPUSCULAR HGB CONC 31.6 g/dl (32.0-36.5); MEAN CORPUSCULAR VOLUME 78.7 fl (80.0-96.0); MONO # 0.3 10^3/uL (0.0-0.8); MONO % 4.3 % (0.0-5.0); NEUTROPHILS # 5.1 10^3/uL (1.8-7.7); NEUTROPHILS % 67.9 % (36.0-66.0); PLATELET COUNT, AUTOMATED 257 10^3/uL (150-450); RED BLOOD COUNT 4.46 10^6/uL (4.00-5.40); WHITE BLOOD COUNT 7.4 10^3/uL (4.0-10.0)
[2019-05-08 12:44] LABS: CHLAMYDIA DNA AMPLIFICATION NEGATIVE (NEGATIVE); GC DNA AMPLIFICATION NEGATIVE (NEGATIVE)
[2019-05-10 10:36] LABS: HEPATITIS C VIRUS ABY INDEX 0.1 INDEX (<0.8); HIV 1&2 SCREEN CENTAUR NEGATIVE (NEGATIVE); RUBELLA IgG QUALITATIVE IMMUNE (IMMUNE)
== END ==
LOC: M LAB 09:17
PROVIDERS: ATTEND Advanced Practice Midwife
DX: Z34.81 Encounter for supervision of other normal pregnancy, first trimester (principal); Z3A.01 Less than 8 weeks gestation of pregnancy

== ENCOUNTER → 2019-05-24 | Outpatient (CLI) | payer OTHER | LOC: M SMT 09:51 | PROVIDERS: ATTEND Advanced Practice Midwife | DX: Z34.81 Encounter for supervision of other normal pregnancy, first trimester (principal); Z3A.00 Weeks of gestation of pregnancy not specified ==

== ENCOUNTER → 2019-07-14 | Outpatient (CLI) | payer OTHER ==
--- NOTE | 2019-07-14 20:18 | REP ---
Obstetric ultrasound for anatomy: There is a single intrauterine gestation in a vertex presentation. There is movement and cardiac activity. The heart rate is 146 beats per minute. The placenta is posterior. There is no previa or abruptio. The placenta is grade zero. The amniotic fluid volume subjectively is normal. The cervix measures 4.2 cm length. Gestational age by today's ultrasound is 18 weeks 2 days/MARY 12/13/2019. Gestational age by LMP is 18 weeks 3 days/MARY 12/12/2019. weight is 236 grams/0 pounds, 8 ounces. This is the 44th percentile for 18 weeks 3 days. The following anatomic structures are identified and are unremarkable: Cranium, choroid plexus, cavum septum pellucidum, cerebellum, facial profile, face, upper lip, lungs, four-chamber heart, cardiac right and left ventricular outflow tracts, diaphragm, stomach, cord insertion, three-vessel cord, kidneys, bladder, spine and upper lower extremities. There are no anomalies. Electronically Signed by Fredy Alexander MD 07/14/2019 08:09 P
== END ==
LOC: M RAD 17:35
PROVIDERS: ATTEND Advanced Practice Midwife
DX: Z34.82 Encounter for supervision of other normal pregnancy, second trimester (principal)

== ENCOUNTER → 2019-09-13 | Outpatient (CLI) | payer OTHER ==
[2019-09-13 12:56] LABS: HEMATOCRIT 31.3 % (36.0-47.0); HEMOGLOBIN 9.5 g/dl (12.0-15.5); MEAN CORPUSCULAR HEMOGLOBIN 24.2 pg (27.0-33.0); MEAN CORPUSCULAR HGB CONC 30.4 g/dl (32.0-36.5); MEAN CORPUSCULAR VOLUME 79.8 fl (80.0-96.0); PLATELET COUNT, AUTOMATED 220 10^3/uL (150-450); RED BLOOD COUNT 3.92 10^6/uL (4.00-5.40); WHITE BLOOD COUNT 9.2 10^3/uL (4.0-10.0)
== END ==
LOC: M LAB 11:08
PROVIDERS: ATTEND Advanced Practice Midwife
DX: Z34.82 Encounter for supervision of other normal pregnancy, second trimester (principal); Z3A.00 Weeks of gestation of pregnancy not specified

== ENCOUNTER → 2019-11-18 | Outpatient (REF) | payer OTHER, MEDICAID | LOC: M WHC 10:26 | PROVIDERS: ATTEND Advanced Practice Midwife | DX: Z36.85 Encounter for antenatal screening for Streptococcus B (principal) ==

== ENCOUNTER → 2019-11-27 | Outpatient (CLI) | payer OTHER ==
[2019-11-27 11:46] LABS: HEMATOCRIT 34.2 % (36.0-47.0); HEMOGLOBIN 10.6 g/dl (12.0-15.5); MEAN CORPUSCULAR HEMOGLOBIN 24.1 pg (27.0-33.0); MEAN CORPUSCULAR VOLUME 77.9 fl (80.0-96.0); PLATELET COUNT, AUTOMATED 195 10^3/uL (150-450); RED BLOOD COUNT 4.39 10^6/uL (4.00-5.40)
== END ==
LOC: M LAB 11:08
PROVIDERS: ATTEND Advanced Practice Midwife
DX: O99.013 Anemia complicating pregnancy, third trimester (principal); D64.9 Anemia, unspecified

== ENCOUNTER → 2019-11-27 | Outpatient (CLI) | payer OTHER | LOC: M LAB 11:28 | PROVIDERS: ATTEND Advanced Practice Midwife | DX: Z34.93 Encounter for supervision of normal pregnancy, unspecified, third trimester (principal); Z36.89 Encounter for other specified antenatal screening ==

== ENCOUNTER 2019-12-10 10:04 | Inpatient (IN) | payer OTHER, MEDICAID ==
[2019-12-10] VITALS (31 sets, daily range): BP systolic 109–166; BP diastolic 55–90
[~2019-12-10] VITALS: Ht 162.6 cm; Wt 79.3 kg
[2019-12-10] MEDS ORDERED: LACTATED RINGER'S 1000 ML IV STA (10:37)
[2019-12-10] MEDS ORDERED: LR 1,000 ML IV SCH (10:37)
[2019-12-10] MEDS ORDERED: OXYTOCIN DRIP 30 UNITS in IV 1 EA IV SCH (10:45)
--- NOTE | 2019-12-10 11:35 | HPEPDOC ---
Obstetrical History & Physical General Date of Admission Dec 10, 2019 at 10:04 Primary Care Physician: Michelle Koehler CNM History of Present Illness Chief Complaint: Induction of labor Information Provided By: Patient Age: 24 : 4 Term: 3 Pre-term: 0 Abortions: 0 Livin Care Care: Good Care Dating Final EDC: Dec 13, 2019 Final EDC by: 1st trimester (US) EGA at Admission: 39.4 Antepartum Course Diagnos(e)s SIUP at 39.4wk gestation, IOL for gestational hypertension Height (inches): 64 Pre- weight (lbs.): 130 Admission Weight (lbs.): 174 Change in Weight (lbs.): 44 Past Medical History Past Obstetrical History #1: Past Obstetrical History: Primgravida Gestation: 41.0 (06/2013) Type of Delivery: Spontaneous Vaginal Del. Sex of : Male Weight of Infant (grams): 3572 Complications: No Past Obstetrical History #2: Past Obstetrical History: Multigravida Gestation: 39.0 (10/2016) Type of Delivery: Spontaneous Vaginal Del. Sex of Infant: Female Weight of Infant (grams): 3260 Complications: Yes (Gestational hypertension) Past Obstetrical History #3: Past Obstetrical History: Multigravida Gestation: 39.2 (10/2017) Type of Delivery: Spontaneous Vaginal Del. 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 Past Medical History Medical History Kidney stone, migraines Surgical History: Tooth extraction Family History Significant Family History: Diabetes, Hypertension, Other (Suicide, gall stones) Social History Marital Status: Family situation: Spouse/partner home Psychosocial History: No pertinent psych hx * Smoker: non-smoker Alcohol: Denies Drugs: denies Abuse Violence Screening Have you been hit/kicked/slapp: No Have you been sexually assault: No Allergies Coded Allergies: amoxicillin (Verified Allergy, Unknown, 03/14/19) hives Medications Scheduled PRN Acetaminophen (Mapap) 500 Mg Tab, 1,000 MG PO Q6HP PRN for PAIN SCALE 1-5 Ibuprofen (Advil) 200 Mg Cap, 800 MG PO Q8HP PRN for PAIN SCALE 6-10 Miscellaneous Medications Acetaminophen/Aspirin/Caffein (Excedrin Migraine 250-250-65 mg) 1 Tab Tab, 1 TAB PO Norethindrone-E.estradiol-Iron (Microgestin Fe 1-20 Tablet) 1 Each Tablet Physical Examination Physical Examination GENERAL: Alert and oriented times three. BREAST: . ABDOMEN: Gravid and non-tender to touch. FETUS: Is vertex (VTX) by sterile vaginal examination (SVE), fetus is vertex (VTX) by Mario. HEART RATE: Regular rate and rhythm. LUNGS: Clear to auscultation (CTA). EXTREMITIES: No edema. No clonus. Deep tendon reflexes (DTRs) + 2. Laboratory Data 24H LABS Laboratory Tests 2 12/10/19 10:30: Serology Scanned Report Hepatitis B Testing Pertinent Laboratoy Data Blood Type: B+ RBC Antibody Screen: Negative HIV: Negative Hepatitis B: Negative Hepatitis C: Negative Rapid Plasma Reagin: Nonreactive Rubella: Immune Chlamydia/Gonorrhea: Negative Group B Streptococcus: Negative Glucose Tolerance Test: 117 Diag/Inter Therapy Panorama: Low risk, female. Anatomy Ultrasound Ultrasound Date: Jul 14, 2019 Placenta Location: Posterior Normal Anatomy: Yes Placenta Previa: No Estimated Weight (grams): 236 (44%) Other Ultrasounds 04/26/2019-SIUP with CRL 10.1mm, 7.0wk. MARY 12/13/2019. +FH, positive yolk sac. [id number]. FHR 146, posterior placenta without previa or abruption. EFW 236g (44%). No anomalies. Vaginal Examination Dilation: 3 cm (-4) Effacement: 70% Station: -1 Cervical Consistency: Soft Cervical Position: Middle Presentation: Cephalic presentation Position: Vertex (occiput) Assessment Heart Rate (FHR): 140 Variability: Moderate Accelerations: Positive Decelerations: None Tocometer Contractions: Yes Frequency: irregular, other (3 contractions noted) Duration: less than 60 seconds Strength: palpated as mild Assessment/Plan Assessment Dede is a 24-year-old (G)4 para (P)3-0-0-3 at 39+4 weeks by first trimester ultrasound. MARY 12/13/2019. Care was established in first trimester. has been complicated by anemia and gestational hypertension. Presents to Labor and Delivery (L&D) for induction of labor due to gestational hypertension. She reports positive movement, denies vaginal bleeding or leakage of fluid. Denies regular or painful uterine contractions. Plan Admit to labor and delivery. Diet: Clears. Group B Streptococcus (GBS) negative. Labs and intravenous (IV) per unit protocol. Counseled on Pitocin and induction of labor (IOL). Anesthesia consult as needed. Lactated Ringers (LR): Bolus 500 mL, then at 125 mL/hr. Anticipate cervical change. Anticipate normal spontaneous delivery (). C-S as appropriate. Dr. Perea consulted, aware of patient status and agrees with plan. Michelle Koehler CNM Dec 10, 2019 11:35
[2019-12-10 12:12] LABS: HEMOGLOBIN 11.2 g/dl (12.0-15.5); MEAN CORPUSCULAR HEMOGLOBIN 23.9 pg (27.0-33.0); MEAN CORPUSCULAR HGB CONC 31.1 g/dl (32.0-36.5); MEAN CORPUSCULAR VOLUME 76.9 fl (80.0-96.0); PLATELET COUNT, AUTOMATED 205 10^3/uL (150-450); RED BLOOD COUNT 4.68 10^6/uL (4.00-5.40)
[2019-12-10 12:36] LABS: ALT/SGPT 13 U/L (12-78); BILIRUBIN,TOTAL 0.4 MG/DL (0.2-1.0); GLOMERULAR FILTRATION RATE > 60.0 (>60); LDH LACTATE DEHYDROGENASE 169 U/L (84-246); URIC ACID 4.7 MG/DL (2.6-6.0)
[2019-12-10 12:46] LABS: CREATININE,RANDOM URINE 58.5 MG/DL
[2019-12-10] MEDS ORDERED: FENTANYL/ROPIVACAINE/NACL BAG 100 ML EPIDURAL SCH (15:30)
[2019-12-10] MEDS ORDERED: EPIDURAL/PCA KEYS XX PRN (15:30)
[2019-12-10] MEDS ORDERED: EPIDURAL COMMENT XX SCH (15:30)
[2019-12-10] MEDS ORDERED: diphenhydrAMINE INJ 50MG/ML VIAL (J1200) IV PRN (15:30)
[2019-12-10] MEDS ORDERED: NALOXONE INJ 0.4 MG/1 ML VIAL (J2310) IV PRN (15:30)
[2019-12-10] MEDS ORDERED: REFRIGERATOR IV KEYS XX PRN (15:30)
[2019-12-10] MEDS ORDERED: ONDANSETRON 4MG/2ML VIAL (J2405) IV PRN (15:30)
[2019-12-10] MEDS ORDERED: ePHEDrine SULFATE 25 MG/5 ML(5MG/ML) SYRINGE IV PRN (15:30)
[2019-12-10] MEDS ORDERED: LACTATED RINGER'S 1000 ML IV PRN (15:30)
--- NOTE | 2019-12-10 15:31 | IPNPDOC ---
Text Note Date of Service The patient was seen on 12/10/19. NOTE Progress: Subjective: Patient reports increased pain and pressure with contractions. Requesting an epidural. Reports positive movement, denies vaginal bleeding or leakage of fluid. Objective: Alert and oriented x3. SVE 5/90/+1, bulging bag noted. Normal bloody show noted on glove. FHR 125 with moderate variability, periods of minimal. Accelerations present, decelerations absent. Contractions moderate to palpation, every 3-5 minutes. Assessment: SIUP at 39.4wk gestation, IOL for GHTN, FHR category 1 overall. Plan: Continue induction of labor per protocol. Anesthesia notified of patient request for an epidural. Clear liquid diet. Anticipate cervical change. Anticipate vaginal delivery. C/S as appropriate. Dr. Perea aware of patient status. VS,Davide, I+O VS, Jonabone, I+O Laboratory Tests 12/10/19 11:55 Vital Signs Date Time Temp Pulse Resp B/P (MAP) Pulse Ox O2 Delivery O2 Flow Rate FiO2 12/10/19 15:12 87 16 121/69 (86) 12/10/19 10:47 97.5 Michelle Koehler CNM Dec 10, 2019 15:31
[2019-12-10] MEDS ORDERED: FENTANYL 2MCG/ML ROPIVACAINE 0.2% IN 0.9% NACL 100ML IVBAG As Ordered ONE (15:37)
--- NOTE | 2019-12-10 17:10 | DNPDOC ---
[facility] Delivery Note Delivery Note DATE OF DELIVERY: 12/10/2019 at 1635 PREDELIVERY DIAGNOSIS: 39-4/7 weeks' gestation and labor. GHTN. POST DELIVERY DIAGNOSIS: Delivered. PROCEDURE: Spontaneous vaginal delivery. PROVIDER: Keisha De La Cruz, Student Nurse-Library Information Technician assisted by Michelle Koehler CNM ANESTHESIA: Epidural. ESTIMATED BLOOD LOSS: 150 mL. FINDINGS: 7 pound 12 ounce (3520g) female infant, Score 8/9, no nuchal cord. DELIVERY SUMMARY: Patient is a 24-year-old 4 now para 4-0-0-4 who was admitted to labor and delivery for induction of labor due to GHTN. Patient received an epidural for pain management and was induced with Pitocin. Small amount of clear fluid noted on AROM at 1622. Patient progressed to fully dilated at 1630 and pushed to a living female in the OA position with restitution to LOT at 1635. A 60-second shoulder dystocia was noted that resolved with McRobert's maneuvers and suprapubic pressure. The posterior shoulder and corpus delivered with ease immediately following. The baby was placed on the maternal abdomen, [id number], active and crying. The cord was clamped times 2 after pulsation ceased and cut by FOB. A 3-vessel cord was noted. The placenta delivered spontaneously and intact at 1641. Uterine hemostasis was achieved via rapid infusion of IV Pitocin at 999 ml/hr for 30 units in 500 ml NS and fundal massag e. The vagina, cervix and perineum were inspected and found to be intact. Mom plans to breastfeed and attempted in room. Both mother and baby are in stable condition. All counts of instruments and sponges are correct. They are naming their baby "Yakelin." Michelle Koehler CNM Dec 10, 2019 17:10
[2019-12-10] MEDS ORDERED: ACETAMINOPHEN TAB 650MG DOSE (2X325MG) PO PRN (17:15)
[2019-12-10] MEDS ORDERED: ANUSOL HC CREAM 30GM TOP PRN (17:15)
[2019-12-10] MEDS ORDERED: METHYLERGONOVINE MALEATE 0.2 MG TAB PO PRN (17:15)
[2019-12-10] MEDS ORDERED: DOCUSATE SODIUM 100 MG CAP PO PRN (17:15)
[2019-12-10] MEDS ORDERED: IBUPROFEN 600 MG TAB PO PRN (17:15)
[2019-12-10] MEDS ORDERED: DIBUCAINE 1% OINTMENT 30GM TOP PRN (17:15)
[2019-12-10] MEDS ORDERED: MOM 30ML SUSPENSION UDC PO PRN (17:15)
[2019-12-10] MEDS ORDERED: RHOGAM 300 MCG (1500 IU) INJ (J2790) IM SCH (18:00)
[2019-12-10] MEDS ORDERED: MEASLES,MUMPS,RUBELLA VACCINE INJ (MMR-II) (90707) SC SCH (18:00)
[2019-12-11] MEDS: IBUPROFEN 800 MG TAB PO PRN ×3 (00:30→21:42)
[2019-12-11 06:00] VITALS: BP 125/60
[2019-12-11] MEDS: ACETAMINOPHEN 500 MG TAB PO PRN ×2 (06:01→18:35)
--- NOTE | 2019-12-11 07:07 | IPNPDOC ---
Progress Note Date of Service: Dec 11, 2019 Day#: 1 Progress Note SUBJECT: Dede is a 24-year-old 4 now Para 4-0-0-4 status post spontaneous vaginal delivery at 39-4/7 weeks gestation complicated by GHTN, doing well day # 1. She has been ambulating, voiding spontaneously without issue and tolerating regular diet. Reports lochia is like a normal period. Patient reports pain is well-controlled. OBJECTIVE: VITAL SIGNS: Within normal limits, afebrile. Alert and oriented times three. Breath sounds clear to auscultation. Heart rate: Regular rate and rhythm, no murmurs, rubs or gallops. Abdomen: Fundus firm at U-1. Soft, appropriately tender to palpation. Minimal lochia. ASSESSMENT: day 1, GHTN PLAN: 1. Desires discharge to home today. 2. Tylenol and Motrin for pain. 3. Encourage ambulation. 4. Nothing in vagina for 6 weeks. 5. Routine care. VS, I&O, 24H, Jonabone Vital Signs/I&O Vital Signs Date Time Temp Pulse Resp B/P (MAP) Pulse Ox O2 Delivery O2 Flow Rate FiO2 12/11/19 06:00 98.2 82 17 125/60 (81) 97 Room Air I&O- Last 24 Hours up to 6 AM 12/11/19 06:00 Output Total 550 ml Balance -550 ml Laboratory Data 24H LABS Laboratory Tests 2 12/10/19 10:30: Serology Scanned Report Hepatitis B Testing 12/10/19 11:55: Nucleated Red Blood Cells % (auto) 0.0, Urine Random Creatinine 58.5, Urine Random Total Protein 11.0, Glomerular Filtration Rate > 60.0, Uric Acid 4.7, Total Bilirubin 0.4, Aspartate Amino Transf (AST/SGOT) 12, Alanine Aminotransfer ase (ALT/SGPT) 13, Lactate Dehydrogenase 169, Syphilis Serology NONREACTIVE CBC/BMP Laboratory Tests 12/10/19 11:55 Michelle Koehler CNM Dec 11, 2019 07:07
[2019-12-11] MEDS: PRENATAL VITAMINS CHEWABLE TABLET PO SCH (08:33)
[2019-12-11 18:00] VITALS: BP 120/63
[2019-12-12 06:00] VITALS: BP 115/68
[2019-12-12] MEDS ORDERED: ACET-683 PO (08:37)
[2019-12-12] MEDS ORDERED: IBUP80TA PO (08:37)
[2019-12-12] MEDS: PRENATAL VITAMINS CHEWABLE TABLET PO SCH (08:40)
[2019-12-12] MEDS: IBUPROFEN 800 MG TAB PO PRN (08:59)
== END 2019-12-12 12:40 | disposition home or self-care (01) | DRG 560 ==
LOC: M LDI 10:04 → M OBS 19:43
PROVIDERS: ADMIT Advanced Practice Midwife; ATTEND Advanced Practice Midwife
PROC: 10E0XZZ Delivery of Products of Conception, External Approach (ICD-10-PCS; principal; 2019-12-10)
PROC: 3E033VJ Introduction of Other Hormone into Peripheral Vein, Percutaneous Approach (ICD-10-PCS; 2019-12-10)
PROC: 10907ZC Drainage of Amniotic Fluid, Therapeutic from Products of Conception, Via Natural or Artificial Opening (ICD-10-PCS; 2019-12-10)
DX: O13.4 Gestational [pregnancy-induced] hypertension without significant proteinuria, complicating childbirth (principal); Z3A.39 39 weeks gestation of pregnancy; Z37.0 Single live birth; O99.02 Anemia complicating childbirth; D64.9 Anemia, unspecified; O66.0 Obstructed labor due to shoulder dystocia

== ENCOUNTER 2020-04-13 04:06 | Emergency (ER) | payer MEDICAID, OTHER ==
[~2020-04-13] VITALS: Ht 162.6 cm; Wt 67.3 kg
[~2020-04-13 04:06] MED LIST changes: +ACET-683 PO; +IBUP80TA PO
[2020-04-13] MEDS ORDERED: KETOROLAC 30 MG/ML 1ML VIAL IV ONE (04:30)
[2020-04-13 04:42] LABS: BASO % 0.3 % (0.0-1.0); EOS # 0.3 10^3/uL (0.0-0.5); EOS % 3.8 % (0.0-3.0); HEMOGLOBIN 12.9 g/dl (12.0-15.5); LYMPH % 39.5 % (24.0-44.0); MEAN CORPUSCULAR HEMOGLOBIN 27.3 pg (27.0-33.0); MEAN CORPUSCULAR HGB CONC 32.3 g/dl (32.0-36.5); MEAN CORPUSCULAR VOLUME 84.7 fl (80.0-96.0); MONO # 0.6 10^3/uL (0.0-0.8); MONO % 7.7 % (0.0-5.0); NEUTROPHILS # 3.7 10^3/uL (1.5-8.5); NEUTROPHILS % 48.6 % (36.0-66.0); PLATELET COUNT, AUTOMATED 235 10^3/uL (150-450); RED BLOOD COUNT 4.72 10^6/uL (4.00-5.40); WHITE BLOOD COUNT 7.6 10^3/uL (4.0-10.0)
[2020-04-13] MEDS ORDERED: PHENAZOPYRIDINE 100 MG TAB PO ONE (05:30)
[2020-04-13] MEDS ORDERED: TAMSULOSIN 0.4 MG CAP PO ONE (05:30)
[2020-04-13] MEDS ORDERED: PYRI1TAB5 PO (05:32)
[2020-04-13] MEDS ORDERED: FLOM0.4C39 PO (05:32)
[2020-04-13 05:45] VITALS: BP 124/76
== END 2020-04-13 05:46 | disposition home or self-care (01) ==
LOC: M ED 04:06
DX: R10.9 Unspecified abdominal pain (principal); Z87.442 Personal history of urinary calculi; Z88.5 Allergy status to narcotic agent
CPT/HCPCS: 80047; 81001; 84702; 85025; 87086; 96374; 99284; J1885

== ENCOUNTER → 2020-07-31 | Outpatient (CLI) | payer OTHER ==
[2020-07-31 15:00] LABS: BASO % 0.3 % (0.0-1.0); EOS # 0.3 10^3/uL (0.0-0.5); EOS % 4.4 % (0.0-3.0); HEMATOCRIT 38.7 % (36.0-47.0); HEMOGLOBIN 12.3 g/dl (12.0-15.5); LYMPH # 1.8 10^3/uL (1.5-5.0); LYMPH % 27.3 % (24.0-44.0); MEAN CORPUSCULAR HGB CONC 31.8 g/dl (32.0-36.5); MEAN CORPUSCULAR VOLUME 84.9 fl (80.0-96.0); MONO # 0.6 10^3/uL (0.0-0.8); MONO % 8.3 % (0.0-5.0); NEUTROPHILS # 3.9 10^3/uL (1.5-8.5); NEUTROPHILS % 59.5 % (36.0-66.0); PLATELET COUNT, AUTOMATED 232 10^3/uL (150-450); RED BLOOD COUNT 4.56 10^6/uL (4.00-5.40); WHITE BLOOD COUNT 6.6 10^3/uL (4.0-10.0)
[2020-07-31 15:25] LABS: ALT/SGPT 15 U/L (12-78); BILIRUBIN,TOTAL 0.4 MG/DL (0.2-1.0); CREATININE FOR GFR 0.56 MG/DL (0.55-1.30); GLOMERULAR FILTRATION RATE > 60.0 (>60); LDH LACTATE DEHYDROGENASE 132 U/L (84-246); URIC ACID 3.5 MG/DL (2.6-6.0)
[2020-07-31 16:11] LABS: HEPATITIS C VIRUS ABY INDEX 0.1 INDEX (<0.8); HIV 1&2 SCREEN CENTAUR NEGATIVE (NEGATIVE)
== END ==
LOC: M PLALAB 11:07
PROVIDERS: ATTEND Advanced Practice Midwife
DX: Z34.91 Encounter for supervision of normal pregnancy, unspecified, first trimester (principal); Z3A.00 Weeks of gestation of pregnancy not specified

== ENCOUNTER → 2020-08-30 | Outpatient (CLI) | payer OTHER | LOC: M PLALAB 11:32 | PROVIDERS: ATTEND Advanced Practice Midwife | DX: Z34.82 Encounter for supervision of other normal pregnancy, second trimester (principal); Z3A.00 Weeks of gestation of pregnancy not specified ==

== ENCOUNTER → 2020-09-19 | Outpatient (CLI) | payer OTHER ==
--- NOTE | 2020-09-19 17:40 | REP ---
INDICATION: ANATOMY. COMPARISON: None. TECHNIQUE: Real-time sonographic evaluation of the gravid uterus performed. FINDINGS: Estimated gestational age is18 weeks 6 days, EDC 02/14/2021. Presentation: Variable Placenta posterior, grade 1, without evidence of placenta previa. heart rate is recorded at 146 beats per minute. Amniotic fluid is subjectively normal. Closed cervical length is measured at 3.2 cm. Biometry chart: BPD: 43 mm, weeks 6 days, 51st percentile. HC: 156 mm, 18 weeks 4 days, 40th percentile AC: 143 mm, 19 weeks 4 days, 65th percentile Femur length: 27 mm, 18 weeks 2 days, 36th percentile HC to AC ratio: 1.10, normal range 1.07-1.26. Estimated weight: 267g. anatomy: Cranium: Grossly normal Lateral Ventricles/Choroid Plexus: Grossly normal Posterior Fossa/Cerebellum: Grossly normal Nose/lips/profile: Grossly normal Four chamber heart: Grossly normal Right ventricular outflow tract: Grossly normal Left ventricular outflow tract: Grossly normal Left-sided stomach: Grossly normal Kidneys: Grossly normal Bladder: Grossly normal Cord Insertion: Grossly normal 3 vessel cord: Grossly normal Spine: Grossly normal IMPRESSION: Viable single intrauterine gestation as above. <Electronically signed by Fredy Palomo > 09/19/20 [id number]
== END ==
LOC: M WHC 15:31
PROVIDERS: ATTEND Advanced Practice Midwife
DX: Z34.82 Encounter for supervision of other normal pregnancy, second trimester (principal)

== ENCOUNTER → 2020-10-25 | Outpatient (REF) | payer OTHER | LOC: M PLALAB 09:36 | PROVIDERS: ATTEND Obstetrics & Gynecology | DX: Z3A.23 23 weeks gestation of pregnancy (principal) ==

== ENCOUNTER → 2020-12-06 | Outpatient (REF) | payer OTHER ==
[2020-12-06 18:55] LABS: HEMATOCRIT 33.7 % (36.0-47.0); HEMOGLOBIN 10.5 g/dl (12.0-15.5); MEAN CORPUSCULAR HEMOGLOBIN 26.3 pg (27.0-33.0); MEAN CORPUSCULAR HGB CONC 31.2 g/dl (32.0-36.5); MEAN CORPUSCULAR VOLUME 84.5 fl (80.0-96.0); PLATELET COUNT, AUTOMATED 207 10^3/uL (150-450); RED BLOOD COUNT 3.99 10^6/uL (4.00-5.40); WHITE BLOOD COUNT 9.5 10^3/uL (4.0-10.0)
== END ==
LOC: M PLALAB 12:08
PROVIDERS: ATTEND Obstetrics & Gynecology
DX: Z34.92 Encounter for supervision of normal pregnancy, unspecified, second trimester (principal); Z3A.23 23 weeks gestation of pregnancy

== ENCOUNTER → 2021-01-17 | Outpatient (REF) | payer OTHER | LOC: M SFHCWAGY 13:26 | PROVIDERS: ATTEND Advanced Practice Midwife | DX: Z34.83 Encounter for supervision of other normal pregnancy, third trimester (principal); Z3A.35 35 weeks gestation of pregnancy ==

== ENCOUNTER 2021-02-08 09:01 | Inpatient (IN) | payer OTHER ==
[~2021-02-08] VITALS: Ht 162.6 cm; Wt 81.1 kg
[2021-02-08] VITALS (9 sets, daily range): BP systolic 111–126; BP diastolic 57–73
[2021-02-08] MEDS ORDERED: OXYTOCIN 30 UNITS IN 0.9% NaCl 500ML IV BAG (J2590) As Ordered ONE (09:33)
--- NOTE | 2021-02-08 09:34 | HPEPDOC ---
Obstetrical History & Physical General Date of Admission Feb 08, 2021 at 09:25 History of Present Illness 26 yo female at 38 6/7 weeks by 11 week ultrasound (EDC==02/16/2021) prese nts with regular contractions ever 3-5 minutes for several hours .She also has leakage of fluid per vagina. Information Provided By: Patient Age: 26 : 5 Term: 4 Pre-term: 0 Abortions: 0 Livin Care Care: Good Care Dating Final EDC: February 16, 2021 Final EDC by: 1st trimester (US) Past Medical History Past Obstetrical History : Past Obstetrical History: Multigravida Past Medical History Medical History med hx: none surgical hx: wisdom teeth OB hx: TSVD x 4 Family History Significant Family History: No pertinent family hx Social History Marital Status: Family situation: Spouse/partner home Psychosocial History: No pertinent psych hx Allergies Coded Allergies: amoxicillin (Verified Allergy, Unknown, 03/14/19) hives Medications Scheduled Phenazopyridine HCl (Pyridium) 200 Mg Tablet, 200 MG PO Q8H Tamsulosin HCl (Flomax) 0.4 Mg Capsule, 1 CAP PO DAILY once daily 1/2 hour following the same meal each day Physical Examination Physical Examination GENERAL: Alert and oriented times three. BREAST: . ABDOMEN: Gravid and non-tender to touch. FETUS: Is vertex (VTX) by sterile vaginal examination (SVE), fetus is vertex (VTX) by Mario. HEART RATE: Regular rate and rhythm. LUNGS: Clear to auscultation (CTA). EXTREMITIES: No edema. No clonus. Deep tendon reflexes (DTRs) + . Pertinent Laboratoy Data Group B Streptococcus: Negative Vaginal Examination Dilation: 8 cm Effacement: 100% Station: -1 Cervical Consistency: Soft Presentation: Cephalic presentation Assessment Variability: Moderate Accelerations: Positive Decelerations: None Tocometer Contractions: Yes Frequency: regular, every 3-7 min. Assessment/Plan Assessment Pt is a 26-year-old (G)5 para (P)4-0-0-4 at 38+6 weeks by 11-week ultrasound presents to Labor and Delivery in active labor. Plan Admit and orient. 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 Group B Streptococcus (GBS) negative. Labs and intravenous (IV) per unit protocol. Anticipate normal spontaneous delivery (). C-S as appropriate. KATIE CRONIN MD Feb 08, 2021 09:34
[2021-02-08 09:41] LABS: HEMATOCRIT 34.4 % (36.0-47.0); HEMOGLOBIN 10.7 g/dl (12.0-15.5); MEAN CORPUSCULAR HEMOGLOBIN 24.3 pg (27.0-33.0); MEAN CORPUSCULAR HGB CONC 31.1 g/dl (32.0-36.5); PLATELET COUNT, AUTOMATED 184 10^3/uL (150-450); RED BLOOD COUNT 4.41 10^6/uL (4.00-5.40); WHITE BLOOD COUNT 15.5 10^3/uL (4.0-10.0)
[2021-02-08] MEDS ORDERED: OXYTOCIN DRIP 30 UNITS in IV 1 EA IV ONE (11:00)
[2021-02-08] MEDS ORDERED: RHOGAM 300 MCG (1500 IU) INJ (J2790) IM SCH (11:00)
[2021-02-08] MEDS ORDERED: MEASLES,MUMPS,RUBELLA VACCINE INJ (MMR-II) (90707) SC SCH (11:00)
[2021-02-08] MEDS ORDERED: ACETAMINOPHEN TAB 650MG DOSE (2X325MG) PO PRN (11:00)
[2021-02-08] MEDS ORDERED: DIBUCAINE 1% OINTMENT 30GM TOP PRN (11:00)
[2021-02-08] MEDS ORDERED: IBUPROFEN 600MG TAB PO PRN (11:00)
[2021-02-08] MEDS ORDERED: METHYLERGONOVINE MALEATE 0.2 MG TAB PO PRN (11:00)
[2021-02-08] MEDS ORDERED: DOCUSATE SODIUM 100MG CAPSULE PO PRN (11:00)
[2021-02-08] MEDS: IBUPROFEN 800 MG TAB PO PRN ×2 (11:37→19:41)
[2021-02-08] MEDS: PRENATAL VITAMINS CHEWABLE TABLET PO SCH (12:32)
[2021-02-08] MEDS ORDERED: SLF 3 ML SYR IV PRN (12:40)
[2021-02-08] MEDS ORDERED: SLF 3 ML SYR IV SCH (14:00)
--- NOTE | 2021-02-08 14:36 | DNPDOC ---
[facility] Delivery Note Delivery Note DATE OF DELIVERY: February 08, 2021 PREDELIVERY DIAGNOSIS: 38 6/7- weeks' gestation and labor. POST DELIVERY DIAGNOSIS: Delivered. PROCEDURE: Spontaneous vaginal delivery. REAL TIME ANALYST: Dr. Katie Cronin MD ANESTHESIA: none. ESTIMATED BLOOD LOSS: 400 mL. FINDINGS: 8 pound 0 ounce male , Score 8/9 DELIVERY SUMMARY: Patient is a 26-year-old 5 now para 5005 female who was admitted to labor and delivery for active labor. she progressed without Augmentation. She had AROM performed. After a 10 minute second stage of labor she had a spontaneous vaginal delivery of a 8# 0 oz. male . Cord wrapped around right ankle. Infant handed to mother. Cord clamped and cut. Placenta delivered by manual removal for adherent portion of placenta. Placenta appeared to be intact upon inspection. Pt received IV Pitocin after delivery of the placenta. No vaginal lacerations present. Sponge counts correct. KATIE CRONIN MD Feb 08, 2021 14:36
[2021-02-08] MEDS: ACETAMINOPHEN 500 MG TAB PO PRN ×2 (15:38→23:01)
[2021-02-09] MEDS: IBUPROFEN 800 MG TAB PO PRN ×2 (05:27→13:48)
[2021-02-09 05:56] VITALS: BP 110/55
[2021-02-09] MEDS: PRENATAL VITAMINS CHEWABLE TABLET PO SCH (08:33)
[2021-02-09] MEDS ORDERED: BOOSTRIX/ADACEL VACCINE (DIPHTH/PERTUSS/ACELL/TETANUS) 0.5ML SYR IM ONE (09:00)
== END 2021-02-09 14:14 | disposition home or self-care (01) | DRG 560 ==
LOC: M LDO 09:01 → M LDI 09:25 → M OBS 13:30
PROVIDERS: ADMIT Specialist; ATTEND Specialist
PROC: 10E0XZZ Delivery of Products of Conception, External Approach (ICD-10-PCS; principal; 2021-02-08)
PROC: 10907ZC Drainage of Amniotic Fluid, Therapeutic from Products of Conception, Via Natural or Artificial Opening (ICD-10-PCS; 2021-02-08)
DX: O69.82X0 Labor and delivery complicated by other cord entanglement, without compression, not applicable or unspecified (principal); Z37.0 Single live birth; Z3A.38 38 weeks gestation of pregnancy

== ENCOUNTER 2021-02-11 17:15 | Emergency (ER) | payer OTHER ==
[~2021-02-11] VITALS: Ht 162.6 cm; Wt 75.5 kg
[2021-02-11] MEDS ORDERED: IBUP200T45 PO (17:26)
[2021-02-11] MEDS ORDERED: NS 1,000 ML IV ONE (17:50)
[2021-02-11 18:31] LABS: BASO % 0.2 % (0.0-1.0); EOS # 0.1 10^3/uL (0.0-0.5); EOS % 0.8 % (0.0-3.0); HEMATOCRIT 27.1 % (36.0-47.0); HEMOGLOBIN 8.3 g/dl (12.0-15.5); LYMPH # 0.5 10^3/uL (1.5-5.0); LYMPH % 5.1 % (24.0-44.0); MEAN CORPUSCULAR HEMOGLOBIN 24.3 pg (27.0-33.0); MEAN CORPUSCULAR HGB CONC 30.6 g/dl (32.0-36.5); MEAN CORPUSCULAR VOLUME 79.2 fl (80.0-96.0); MONO # 0.5 10^3/uL (0.0-0.8); MONO % 4.7 % (2.0-8.0); NEUTROPHILS # 8.7 10^3/uL (1.5-8.5); NEUTROPHILS % 88.8 % (36.0-66.0); PLATELET COUNT, AUTOMATED 157 10^3/uL (150-450); RED BLOOD COUNT 3.42 10^6/uL (4.00-5.40); WHITE BLOOD COUNT 9.8 10^3/uL (4.0-10.0)
[2021-02-11 18:51] LABS: ALBUMIN 2.6 GM/DL (3.2-5.2); ALT/SGPT 22 U/L (12-78); AMYLASE 47 U/L (25-115); BILIRUBIN,DIRECT < 0.1 MG/DL (0.0-0.2); BILIRUBIN,TOTAL 0.2 MG/DL (0.2-1.0); BLOOD UREA NITROGEN 12 MG/DL (7-18); C REACTIVE PROTEIN QUANTITATIV 3.22 MG/DL (0.00-0.30); CALCIUM LEVEL 8.5 MG/DL (8.5-10.1); CARBON DIOXIDE LEVEL 25 MEQ/L (21-32); CHLORIDE LEVEL 105 MEQ/L (98-107); CK-MB VALUE MASS < 1.0 NG/ML (<3.6); CPK CREATINE PHOSPHOKINASE 77 U/L (26-192); CREATININE FOR GFR 0.51 MG/DL (0.55-1.30); GLOMERULAR FILTRATION RATE > 60.0 (>60); GLUCOSE, FASTING 140 MG/DL (70-100); INR 0.92; POTASSIUM SERUM 3.5 MEQ/L (3.5-5.1); PROTHROMBIN TIME 12.6 SECONDS (12.5-14.3); SODIUM LEVEL 139 MEQ/L (136-145); TOTAL PROTEIN 5.7 GM/DL (6.4-8.2); TROPONIN I < 0.02 NG/ML (< 0.10)
[2021-02-11 18:52] LABS: PARTIAL THROMBOPLASTIN TIME 26.5 SECONDS (24.2-38.5)
[2021-02-11 19:15] LABS: APPEARANCE, URINE CLEAR (CLEAR); BACTERIA, URINE AUTO NEGATIVE (NEGATIVE); BILIRUBIN, URINE AUTO NEGATIVE (NEGATIVE); BLOOD, URINE BLOOD 3+ (NEGATIVE); COLOR, URINE STRAW (YELLOW); GLUCOSE, URINE (UA) AUTO NEGATIVE (NEGATIVE); KETONE, URINE AUTO NEGATIVE (NEGATIVE); LEUKOCYTE ESTERASE, URINE AUTO TRACE (NEGATIVE); NITRITE, URINE AUTO NEGATIVE (NEGATIVE); PROTEIN, URINE AUTO NEGATIVE (NEGATIVE); RBC, URINE AUTO 107 /HPF (0-3); SPECIFIC GRAVITY URINE AUTO 1.005 (1.002-1.035); SQUAMOUS EPITHELIAL CELL UR AU 1 /HPF (0-6); UROBILINOGEN, URINE AUTO 0.2 mg/dL (0.0-2.0); WBC, URINE AUTO 8 /HPF (0-3)
--- NOTE | 2021-02-11 19:41 | REP ---
INDICATION: assess for retained products; vag delivery 02/08 COMPARISON: None. TECHNIQUE: Transabdominal Grayscale and color B-mode ultrasound examination using curved array transducer. FINDINGS: Heterogeneous anteverted uterus measures 17.5 x 6.2 x 4.6 cm. The endometrial complex measures 3.2 mm thickness. No endocervical fluid or evidence for retained products of conception noted. Bilateral ovaries are normal in appearance. Right ovary measures 2.9 x 1.2 x 1.2 cm. Left ovary measures 2.9 x 1.7 x 1.6 cm. No pelvic fluid. IMPRESSION: No evidence for retained products of conception. <Electronically signed by Shorty Saul > 02/11/211937
[2021-02-11] MEDS ORDERED: MACR100C43 PO (20:34)
[2021-02-11] MEDS ORDERED: NITROFURANTOIN (MACROBID) 100 MG CAP PO ONE (20:35)
[2021-02-11 20:40] VITALS: BP 149/77
[2021-02-11] MEDS ORDERED: ACETAMINOPHEN 325 MG TAB PO ONE (20:40)
== END 2021-02-11 20:52 | disposition home or self-care (01) ==
LOC: M ED 17:15
DX: N39.0 Urinary tract infection, site not specified (principal); J45.909 Unspecified asthma, uncomplicated; Z87.442 Personal history of urinary calculi; Z79.899 Other long term (current) drug therapy; Z88.0 Allergy status to penicillin

== ENCOUNTER → 2021-04-14 | Outpatient (CLI) | payer OTHER ==
[~2021-04-14] MED LIST changes: +IBUP200T45 PO; +MACR100C43 PO
== END ==
LOC: M LABSMTC 09:28
PROVIDERS: ATTEND Anesthesiology
DX: Z01.812 Encounter for preprocedural laboratory examination (principal); Z20.822 Contact with and (suspected) exposure to COVID-19

== ENCOUNTER 2021-04-19 07:36 | Day surgery (SDC) | payer OTHER ==
[~2021-04-19] VITALS: Ht 162.6 cm; Wt 69.3 kg
[~2021-04-19 07:36] MED LIST changes: +LIDOCAINE 1% MDV 20ML VIAL SQ PRN; +LR 1,000 ML IV ONE
[2021-04-19] MEDS ORDERED: MIDAZOLAM INJ 2MG/2ML VIAL (J2250 PER 1MG) As Ordered ONE (07:53)
[2021-04-19] MEDS ORDERED: fentaNYL 100 MCG/2 ML INJECTION (J3010) As Ordered ONE ×2 (07:53→09:46)
[2021-04-19] MEDS ORDERED: LIDOCAINE 2% 100MG/5ML SDV (FOR ANES.) As Ordered ONE (07:57)
[2021-04-19 08:16] LABS: HEMATOCRIT 38.5 % (36.0-47.0); HEMOGLOBIN 11.8 g/dl (12.0-15.5); MEAN CORPUSCULAR HEMOGLOBIN 23.8 pg (27.0-33.0); MEAN CORPUSCULAR HGB CONC 30.6 g/dl (32.0-36.5); MEAN CORPUSCULAR VOLUME 77.6 fl (80.0-96.0); PLATELET COUNT, AUTOMATED 270 10^3/uL (150-450); RED BLOOD COUNT 4.96 10^6/uL (4.00-5.40); WHITE BLOOD COUNT 6.8 10^3/uL (4.0-10.0)
[2021-04-19] MEDS ORDERED: BUPIVACAINE HCL 0.25% 30ML VIAL As Ordered ONE (08:33)
[2021-04-19] MEDS ORDERED: ACETAMINOPHEN 1000MG 100ML IV BTL (OFIRMEV) (J0131 PER 10MG) As Ordered ONE (08:57)
[2021-04-19] MEDS ORDERED: dexameTHASONE 4 MG/ML 1ML VIAL (J1100 PER 1MG) As Ordered ONE (09:09)
[2021-04-19] MEDS ORDERED: KETOROLAC 60MG 2ML VIAL As Ordered ONE (09:09)
[2021-04-19] MEDS ORDERED: ONDANSETRON 4MG/2ML VIAL As Ordered ONE (09:09)
[2021-04-19] MEDS ORDERED: METOCLOPRAMIDE INJ 10MG/2ML VIAL (J2765 PER 1) As Ordered ONE (09:09)
[2021-04-19] MEDS ORDERED: SUGAMMADEX SODIUM 500 MG/5 ML VIAL (BRIDION) As Ordered ONE (09:14)
[2021-04-19] MEDS ORDERED: propofoL 200 MG/20 ML VIAL As Ordered ONE (09:17)
[2021-04-19] MEDS ORDERED: OXYC1TAB23 PO (09:30)
[2021-04-19] MEDS ORDERED: IBUP-1022 PO (09:31)
--- NOTE | 2021-04-19 10:03 | ROOPDOC ---
[facility] Report Of Operation Report of Operation DATE OF PROCEDURE: 04/19/21 PREPROCEDURE DIAGNOSES: Undesired fertility. POSTPROCEDURE DIAGNOSES: Same. PROCEDURE PERFORMED: Laparoscopic bilateral salpingectomy. SURGEON: Katie Cronin MD ANESTHESIA: GETA. ESTIMATED BLOOD LOSS: Approximately 10 mL. COMPLICATIONS: lexy. FINDINGS: Normal uterus fallopian tubes and ovaries. Normal upper abdomen. SPECIMENS REMOVED: Bilateral fallopian tubes PROCEDURE NOTE: The patient was taken to the operating room where general endotracheal anesthesia was induced. She was prepped and draped in a sterile fashion in the dorsal lithotomy position. A sponge stick was placed in the vagina to use as a manipulator. A periumbilical incision was made with a scalpel. A Veress needle was placed through this incision while tenting up on the skin of the abdomen. An intra-abdominal location the Veress needle was assessed with the use of a saline filled syringe. A pneumoperitoneum was created. The Veress needle was removed. A 5 mm trocar using Visiport was inserted through this incision. A 5 and 8 mm suprapubic port were placed under direct visualization. A grasping instrument was used to elevate each fallopian tube. A LigaSure device was used to coagulate and incise broad ligament attachments to the fallopian tube. Both tubes were excised near their origin. Both tubes were removed through the suprapubic port. The pneumoperitoneum was released. All instruments were removed. The skin was closed with 4-0 Monocryl subcuticular sutures. Sponge instrument and needle counts were correct. The patient went to the recovery room in stable condition. KATIE CRONIN MD Apr 19, 2021 10:03
[2021-04-19] MEDS ORDERED: HYDROMORPHONE HCL 0.5 MG/ 0.5 ML SYRINGE (J1170 PER 1) IV PRN (10:10)
[2021-04-19] MEDS ORDERED: ONDANSETRON 4MG/2ML VIAL IV PRN (10:10)
[2021-04-19] MEDS ORDERED: oxyCODONE 5MG TAB PO PRN (10:10)
[2021-04-19] MEDS ORDERED: fentaNYL 100 MCG/2 ML INJECTION (J3010) IV PRN (10:10)
[2021-04-19] MEDS ORDERED: LR 1,000 ML IV SCH (10:10)
[2021-04-19] MEDS ORDERED: PERCOCET 5MG/325MG TAB PO PRN (10:15)
[2021-04-19 10:41] VITALS: BP 123/67
== END 2021-04-19 11:08 | disposition home or self-care (01) ==
LOC: M SDC 07:36
PROVIDERS: ATTEND Specialist
DX: Z30.2 Encounter for sterilization (principal); D64.9 Anemia, unspecified; G43.909 Migraine, unspecified, not intractable, without status migrainosus; J45.909 Unspecified asthma, uncomplicated; F17.210 Nicotine dependence, cigarettes, uncomplicated; Z88.1 Allergy status to other antibiotic agents
CPT/HCPCS: 36415; 58661; 81025; 85027; 88302; J0131; J1100; J1885; J2250; J2405; J2765; J3010

== ENCOUNTER → 2021-11-30 | Outpatient (REF) | payer OTHER ==
[~2021-11-30] MED LIST changes: +IBUP-1022 PO; -IBUP200T45 PO; +IBUP200T46 PO; -LIDOCAINE 1% MDV 20ML VIAL SQ PRN; -LR 1,000 ML IV ONE; +OXYC1TAB23 PO
== END ==
LOC: M SFHCDERM 14:10
PROVIDERS: ATTEND Nurse Practitioner Family
DX: D23.4 Other benign neoplasm of skin of scalp and neck (principal)

== ENCOUNTER 2022-05-18 20:59 | Emergency (ER) | payer OTHER, MEDICAID ==
[~2022-05-18] VITALS: Ht 160 cm; Wt 60.5 kg
[~2022-05-18 20:59] MED LIST changes: +ETON68IM SC; -NEXP1IMP SC
[2022-05-18 21:36] LABS: HEMATOCRIT 35.2 % (36.0-47.0); HEMOGLOBIN 11.1 g/dl (12.0-15.5); MEAN CORPUSCULAR HEMOGLOBIN 26.3 pg (27.0-33.0); MEAN CORPUSCULAR HGB CONC 31.5 g/dl (32.0-36.5); MEAN CORPUSCULAR VOLUME 83.4 fl (80.0-96.0); PLATELET COUNT, AUTOMATED 234 10^3/uL (150-450); RED BLOOD COUNT 4.22 10^6/uL (4.00-5.40); WHITE BLOOD COUNT 8.1 10^3/uL (4.0-10.0)
[2022-05-18 22:07] LABS: HCG, SERUM QUALITATIVE NEGATIVE (NEGATIVE)
[2022-05-18 22:20] LABS: RSV AMPLIFICATION NEGATIVE (NEGATIVE)
[2022-05-18 22:45] LABS: ACETAMINOPHEN LEVEL 13.1 UG/ML (10.0-30.0); ALT/SGPT 20 U/L (12-78); BILIRUBIN,DIRECT < 0.1 MG/DL (0.0-0.2); BILIRUBIN,TOTAL 0.2 MG/DL (0.2-1.0); BLOOD UREA NITROGEN 15 MG/DL (7-18); CALCIUM LEVEL 8.8 MG/DL (8.5-10.1); CARBON DIOXIDE LEVEL 27 MEQ/L (21-32); CHLORIDE LEVEL 108 MEQ/L (98-107); CREATININE FOR GFR 0.83 MG/DL (0.55-1.30); ETHYL ALCOHOL (ETHANOL) < 0.003 % (0.000-0.010); GLOMERULAR FILTRATION RATE > 60.0 (>60); GLUCOSE, FASTING 100 MG/DL (70-100); POTASSIUM SERUM 3.5 MEQ/L (3.5-5.1); SALICYLATE LEVEL < 1.7 MG/DL (5.0-30.0); SODIUM LEVEL 141 MEQ/L (136-145); TOTAL PROTEIN 6.9 GM/DL (6.4-8.2)
[2022-05-18 23:25] VITALS: BP 130/72
== END 2022-05-18 23:27 | disposition home or self-care (01) ==
LOC: M ED 20:59
DX: Z04.6 Encounter for general psychiatric examination, requested by authority (principal); Z87.442 Personal history of urinary calculi; Z88.0 Allergy status to penicillin

== ENCOUNTER → 2022-06-07 | Outpatient (CLI) | payer OTHER, MEDICAID ==
[2022-06-07 13:02] LABS: BASO % 0.3 % (0.0-1.0); EOS # 0.2 10^3/uL (0.0-0.5); EOS % 4.1 % (0.0-3.0); HEMATOCRIT 39.7 % (36.0-47.0); HEMOGLOBIN 12.4 g/dl (12.0-15.5); LYMPH # 1.7 10^3/uL (1.5-5.0); LYMPH % 28.9 % (24.0-44.0); MEAN CORPUSCULAR HEMOGLOBIN 26.6 pg (27.0-33.0); MEAN CORPUSCULAR HGB CONC 31.2 g/dl (32.0-36.5); MONO # 0.4 10^3/uL (0.0-0.8); MONO % 6.8 % (2.0-8.0); NEUTROPHILS # 3.5 10^3/uL (1.5-8.5); NEUTROPHILS % 59.7 % (36.0-66.0); PLATELET COUNT, AUTOMATED 234 10^3/uL (150-450); RED BLOOD COUNT 4.67 10^6/uL (4.00-5.40); WHITE BLOOD COUNT 5.9 10^3/uL (4.0-10.0)
[2022-06-07 13:34] LABS: ERYTHROCYTE SEDIMENTATION RATE 6 mm/hr (0-20)
[2022-06-07 13:43] LABS: ALBUMIN 4.1 GM/DL (3.2-5.2); ALT/SGPT 18 U/L (12-78); BILIRUBIN,TOTAL 0.3 MG/DL (0.2-1.0); BLOOD UREA NITROGEN 9 MG/DL (7-18); CALCIUM LEVEL 9.2 MG/DL (8.5-10.1); CARBON DIOXIDE LEVEL 27 MEQ/L (21-32); CHLORIDE LEVEL 104 MEQ/L (98-107); GLOMERULAR FILTRATION RATE > 60.0 (>60); GLUCOSE, FASTING 96 MG/DL (70-100); POTASSIUM SERUM 3.8 MEQ/L (3.5-5.1); RHEUMATOID FACTOR QUANT < 10.0 IU/ML (<15.0); SODIUM LEVEL 136 MEQ/L (136-145); THYROID STIMULATING HORMONE 0.671 uIU/ML (0.358-3.740); TOTAL PROTEIN 6.9 GM/DL (6.4-8.2)
[2022-06-08 13:07] LABS: ANTINUCLEAR ANTIBODIES DIRECT Negative (Negative)
== END ==
LOC: M PLALAB 10:31
PROVIDERS: ATTEND Psychiatry & Neurology Neurology
DX: R51.9 Headache, unspecified (principal)

== ENCOUNTER → 2023-12-25 | Outpatient (CLI) | payer OTHER, SELFPAY ==
[~2023-12-25] MED LIST changes: -MICR1TAB16; +NORE1TAB86
[2023-12-25 13:27] LABS: BASO % 0.4 % (0.0-1.0); EOS # 0.6 10^3/uL (0.0-0.5); EOS % 6.2 % (0.0-3.0); HEMATOCRIT 31.5 % (36.0-47.0); HEMOGLOBIN 9.5 g/dl (12.0-15.5); LYMPH # 2.2 10^3/uL (1.5-5.0); LYMPH % 23.4 % (24.0-44.0); MEAN CORPUSCULAR HEMOGLOBIN 22.5 pg (27.0-33.0); MEAN CORPUSCULAR HGB CONC 30.2 g/dl (32.0-36.5); MEAN CORPUSCULAR VOLUME 74.6 fl (80.0-96.0); MONO # 0.7 10^3/uL (0.0-0.8); MONO % 7.3 % (2.0-8.0); NEUTROPHILS # 5.8 10^3/uL (1.5-8.5); NEUTROPHILS % 62.3 % (36.0-66.0); PLATELET COUNT, AUTOMATED 284 10^3/uL (150-450); RED BLOOD COUNT 4.22 10^6/uL (4.00-5.40); WHITE BLOOD COUNT 9.3 10^3/uL (4.0-10.0)
[2023-12-25 14:01] LABS: TOTAL IRON BINDING CAPACITY 376 UG/DL (250-425)
[2023-12-25 14:02] LABS: ALBUMIN 4.1 G/DL (3.2-5.2); ALKALINE PHOSPHATASE 49 U/L (46-116); ALT/SGPT 14 U/L (7.0-40); AST/SGOT 8 U/L (<34); BILIRUBIN,TOTAL 0.4 MG/DL (0.3-1.2); BLOOD UREA NITROGEN 15 MG/DL (9-23); CALCIUM LEVEL 8.8 MG/DL (8.5-10.1); CARBON DIOXIDE LEVEL 26 MMOL/L (20-31); CHLORIDE LEVEL 108 MMOL/L (98-107); CREATININE FOR GFR 0.68 MG/DL (0.55-1.30); GLOMERULAR FILTRATION RATE > 60.0 (>60); GLUCOSE, FASTING 87 MG/DL (60-100); IRON (FE) 18 UG/DL (50-170); PERCENT SATURATION 4.8 % (13.2-45.0); POTASSIUM SERUM 4.3 MMOL/L (3.5-5.1); SODIUM LEVEL 140 MMOL/L (136-145); TOTAL PROTEIN 6.2 G/DL (5.7-8.2)
[2023-12-25 14:03] LABS: FERRITIN 4.2 NG/ML (7.3-270.7); FREE T4 0.97 NG/DL (0.89-1.76)
[2023-12-25 14:04] LABS: THYROID STIMULATING HORMONE 0.502 uIU/ML (0.55-4.78)
== END ==
LOC: M PLALAB 09:51
PROVIDERS: ATTEND Nurse Practitioner Family
DX: N92.0 Excessive and frequent menstruation with regular cycle (principal)

== ENCOUNTER → 2024-01-15 | Outpatient (CLI) | payer OTHER, SELFPAY | LOC: M WHC 11:35 | PROVIDERS: ATTEND Nurse Practitioner Family | DX: N94.6 Dysmenorrhea, unspecified (principal); N92.0 Excessive and frequent menstruation with regular cycle; R93.89 Abnormal findings on diagnostic imaging of other specified body structures ==

== ENCOUNTER → 2024-01-16 | Outpatient (REF) | payer OTHER, SELFPAY | LOC: M LAB REF 11:31 | PROVIDERS: ATTEND Nurse Practitioner Family | DX: J06.9 Acute upper respiratory infection, unspecified (principal) ==

== ENCOUNTER → 2024-03-10 | Outpatient (REF) | payer OTHER ==
[2024-03-10 14:57] LABS: CHOLESTEROL RISK RATIO 3.47 (<5); HDL CHOLESTEROL 53.5 MG/DL (>40); LDL CHOLESTEROL 111.3 MG/DL (<100); MAGNESIUM LEVEL 1.9 MG/DL (1.8-2.4); NON-HDL-C 132.5 MG/DL
[2024-03-10 14:59] LABS: TOTAL 25(OH) VITAMIN D 31.2 NG/ML (20.0-100.0)
[2024-03-10 15:28] LABS: HEMOGLOBIN A1c 5.2 % (4.0-6.0)
[2024-03-11 23:09] LABS: ANA (HEP2) Negative (.)
== END ==
LOC: M LAB REF 13:06
PROVIDERS: ATTEND Nurse Practitioner Family
DX: Z82.49 Family history of ischemic heart disease and other diseases of the circulatory system (principal); E66.3 Overweight; E55.9 Vitamin D deficiency, unspecified

== ENCOUNTER → 2024-08-19 | Outpatient (REF) | payer OTHER ==
[~2024-08-19] MED LIST changes: +NORE-30; -NORE1TAB86
[2024-08-23 16:42] LABS: HPV APTIMA Not Detected (Not Detected)
== END ==
LOC: M PLALAB 11:14
PROVIDERS: ATTEND Obstetrics & Gynecology
DX: Z12.4 Encounter for screening for malignant neoplasm of cervix (principal); R87.615 Unsatisfactory cytologic smear of cervix

== ENCOUNTER → 2024-11-18 | Outpatient (CLI) | payer OTHER ==
[2024-11-18 12:53] LABS: HEMATOCRIT 37.1 % (36.0-47.0); HEMOGLOBIN 11.5 g/dl (12.0-15.5); MEAN CORPUSCULAR HEMOGLOBIN 25.7 pg (27.0-33.0); MEAN CORPUSCULAR VOLUME 82.8 fl (80.0-96.0); PLATELET COUNT, AUTOMATED 295 10^3/uL (150-450); RED BLOOD COUNT 4.48 10^6/uL (4.00-5.40); WHITE BLOOD COUNT 8.2 10^3/uL (4.0-10.0)
[2024-11-18 13:26] LABS: ALBUMIN 4.1 G/DL (3.2-5.2); ALKALINE PHOSPHATASE 49 U/L (35-104); ALT/SGPT 24 U/L (7.0-40); AST/SGOT 12 U/L (<34); BILIRUBIN,TOTAL 0.3 MG/DL (0.3-1.2); BLOOD UREA NITROGEN 13 MG/DL (9-23); CALCIUM LEVEL 9.1 MG/DL (8.5-10.1); CARBON DIOXIDE LEVEL 27 MMOL/L (20-31); CHLORIDE LEVEL 106 MMOL/L (98-107); CREATININE FOR GFR 0.56 MG/DL (0.55-1.30); GLOMERULAR FILTRATION RATE > 60.0 (>60); GLUCOSE, FASTING 103 MG/DL (60-100); POTASSIUM SERUM 4.2 MMOL/L (3.5-5.1); SODIUM LEVEL 141 MMOL/L (136-145); TOTAL PROTEIN 7.1 G/DL (5.7-8.2)
[2024-11-18 13:30] LABS: FREE T4 1.06 NG/DL (0.89-1.76); THYROID STIMULATING HORMONE 0.796 uIU/ML (0.55-4.78)
== END ==
LOC: M PLALAB 09:35
PROVIDERS: ATTEND Obstetrics & Gynecology
DX: N92.0 Excessive and frequent menstruation with regular cycle (principal)

== ENCOUNTER → 2024-12-10 | Outpatient (REF) | payer OTHER | LOC: M SFHCWAGY 13:16 | PROVIDERS: ATTEND Obstetrics & Gynecology | DX: Z12.4 Encounter for screening for malignant neoplasm of cervix (principal) ==

== ENCOUNTER 2025-06-29 10:43 | Day surgery (SDC) | payer OTHER ==
[~2025-06-29] VITALS: Ht 162.6 cm; Wt 62.6 kg
[~2025-06-29 10:43] MED LIST changes: -FLOM0.4C39 PO; -IBUP-1022 PO; +IBUP600T42 PO; +LR 1,000 ML IV SCH; +NORE1TAB PO; +TAMS-18 PO
[2025-06-29] MEDS ORDERED: dexAMETHasone 4 MG/ML 1 ML VIAL As Ordered ONE (10:54)
[2025-06-29] MEDS ORDERED: LIDOCAINE 2% 100 MG/5 ML SDV (FOR ANES.) As Ordered ONE (10:54)
[2025-06-29] MEDS ORDERED: ROCURONIUM BROMIDE 50MG/5ML VIAL As Ordered ONE (10:54)
[2025-06-29] MEDS ORDERED: SUGAMMADEX SODIUM 200 MG/2 ML VIAL As Ordered ONE (10:54)
[2025-06-29] MEDS ORDERED: ONDANSETRON 4MG 2ML VIAL As Ordered ONE (10:54)
[2025-06-29] MEDS ORDERED: MIDAZOLAM INJ 2 MG/2 ML VIAL As Ordered ONE (10:55)
[2025-06-29] MEDS ORDERED: HYDROmorphone HCL 2 MG/ML 1 ML VIAL As Ordered ONE (10:55)
[2025-06-29 11:30] LABS: PLATELET COUNT, AUTOMATED 350 10^3/uL (150-450)
[2025-06-29 12:02] LABS: ALT/SGPT 23 U/L (7.0-40); AST/SGOT 18 U/L (<34); CALCIUM LEVEL 9.7 MG/DL (8.5-10.1); CARBON DIOXIDE LEVEL 28 MMOL/L (20-31); CHLORIDE LEVEL 102 MMOL/L (98-107); CREATININE FOR GFR 0.74 MG/DL (0.55-1.30); GLOMERULAR FILTRATION RATE > 90.0 (>60); POTASSIUM SERUM 4.1 MMOL/L (3.5-5.1); SODIUM LEVEL 140 MMOL/L (136-145)
[2025-06-29] MEDS: ceFAZolin SOD 2 GM IV ONCE IV ONE (12:32)
[2025-06-29] MEDS ORDERED: ACETAMINOPHEN 1000MG/100ML IV BAG As Ordered ONE (12:41)
[2025-06-29] MEDS: ACETAMINOPHEN *IV* 1,000 MG in IV 1 EA IV ONE (12:46)
[2025-06-29] MEDS: FLUORESCEIN 10% (100 MG/ML) 5 ML VIAL As Ordered ONE (13:33)
[2025-06-29] MEDS ORDERED: HYDROMORPHONE HCL 0.5 MG/0.5 ML SYRINGE IV PRN (14:00)
[2025-06-29] MEDS ORDERED: LR 1,000 ML IV SCH (14:00)
[2025-06-29] MEDS ORDERED: ONDANSETRON 4MG 2ML VIAL IV PRN (14:00)
[2025-06-29 15:55] VITALS: BP 98/56; TEMP 97.2; O2SAT 98
== END 2025-06-29 16:04 | disposition home or self-care (01) ==
LOC: M SDC 10:43
PROVIDERS: ATTEND Obstetrics & Gynecology
DX: N93.9 Abnormal uterine and vaginal bleeding, unspecified (principal); J45.909 Unspecified asthma, uncomplicated; Z90.79 Acquired absence of other genital organ(s); Z88.1 Allergy status to other antibiotic agents
CPT/HCPCS: 36415; 58570; 80053; 81025; 85027; 86850; 86900; 86901; 88307; J0131; J0665; J0690; J1100; J1171; J2250; J2405; J3010; S2900

== ENCOUNTER → 2025-08-31 | Outpatient (CLI) | payer OTHER ==
[~2025-08-31] MED LIST changes: -LR 1,000 ML IV SCH
[2025-08-31 15:13] LABS: PLATELET COUNT, AUTOMATED 271 10^3/uL (150-450)
[2025-08-31 15:23] LABS: INR 1.0
[2025-08-31 15:28] LABS: ALT/SGPT 16 U/L (7.0-40); AST/SGOT 13 U/L (<34); CALCIUM LEVEL 8.8 MG/DL (8.5-10.1); CARBON DIOXIDE LEVEL 31 MMOL/L (20-31); CHLORIDE LEVEL 100 MMOL/L (98-107); CREATININE FOR GFR 0.86 MG/DL (0.55-1.30); GLOMERULAR FILTRATION RATE > 90.0 (>60); POTASSIUM SERUM 4.0 MMOL/L (3.5-5.1); SODIUM LEVEL 139 MMOL/L (136-145)
== END ==
LOC: M PLALAB 13:38
DX: Z01.818 Encounter for other preprocedural examination (principal); I67.1 Cerebral aneurysm, nonruptured